=== PATIENT | female | born 1960 | race Caucasian/White ===

== ENCOUNTER → 2021-03-13 10:21 | Outpatient (CLI) | payer OTHER, SELFPAY ==
[2021-03-13 12:24] LABS: Absolute Lymphocyte Count 1.91 X10^3/uL (0.83-4.51); Absolute Neutrophil Count 4.2 X10^3/uL (2.0-7.7); Basophil# 0.05 X10^3/uL; Basophil% 0.7 % (0-1); Eosinophil# 0.04 X10^3/uL; Eosinophils% 0.6 % (0-5); Hematocrit 46.7 % (37-47); Hemoglobin 15.2 g/dL (12.0-15.0); Lymphocyte # 1.91 X10^3/ul (0.83-4.51); Mean Corp Hgb Conc 32.5 g/dL (32-36); Mean Corpuscular Hgb 30.3 pg (27.0-32.0); Monocyte# 0.63 X10^3/uL; Monocyte% 9.3 % (0-10); NRBC Flagged by Analyzer 0 % (0-5); Neutrophil # 4.15 X10^3/uL (2.7-7.7); Platelet Count 321 K/mm3 (150-450); RBC Distribution Width CV 12.1 % (11.6-14.6); RBC Distribution Width SD 41.7 fl (35.1-43.9); Red Blood Count 5.02 M/mm3 (4.2-5.4); White Blood Count 6.8 K/mm3 (4.4-11.0)
[2021-03-13 12:49] LABS: ALB/GLOB Ratio 1.1 RATIO (0.9-2.4); AST(SGOT) 11 U/L (15-37); Alanine Aminotransfer ALT/SGPT 19 U/L (13-56); Alkaline Phosphatase 91 U/L (45-117); Anion Gap 6 (5-15); BUN 8 mg/dL (7-18); BUN/Creat Ratio 11.6 RATIO (10-20); Calcium,Total 9.4 mg/dL (8.5-10.1); Chloride 102 mmol/L (98-107); Creatinine, Serum 0.69 mg/dL (0.55-1.02); EST Glomerular Filtration Rate 92 mL/min (>60); Est Glom Filt Rate - Afr Amer 111 mL/min (>60); Globulin 3.8 g/dL (2.2-4.2); Glucose 88 mg/dL (74-106); Potassium 3.7 mmol/L (3.5-5.1); Protein, Total 7.8 g/dL (6.4-8.2); Sodium Level 137 mmol/L (136-145); Thyroid Stim Hormone (TSH) 1.96 uIU/mL (0.358-3.74)
[2021-03-13 13:16] LABS: Hepatitis C Antibody Non-Reactive (Nonreactive); Vitamin D,25 Hydroxy 12.4 ng/mL
== END ==
PROVIDERS: Visit Provider Family Medicine Geriatric Medicine
DX: E55.9 Vitamin D deficiency, unspecified (principal); R53.83 Other fatigue; Z13.89 Encounter for screening for other disorder
CPT/HCPCS: 36415; 80053; 82306; 84443; 85025; 86803

== ENCOUNTER → 2021-03-27 07:35 | Outpatient (CLI) | payer OTHER, SELFPAY ==
--- NOTE | 2021-03-27 07:54 | BI_ITS ---
MAMMOGRAPHY - BILATERAL SCREENING 3-D TOMOSYNTHESIS REASON FOR EXAM: Female, 60 years old. Routine screening PERTINENT HISTORY: Grandmother with breast cancer.. TECHNIQUE: 2-D mammograms and 3-D Tomosynthesis of the breast (s) were performed. CAD was performed. COMPARISON: 2013 FINDINGS: The breast composition is heterogeneously dense that can obscure small breast masses. Scattered benign calcifications are seen. No dense spiculated masses or suspicious microcalcifications are identified. No architectural distortion is identified. There is no skin thickening or retraction. There has been no significant change since the prior study. BI/SCRN MAMM (CAD)W/TYLOR BILAT IMPRESSION: No mammographic signs of malignancy. Routine yearly mammograms recommended. ASSESSMENT CATEGORY: BIRADS Category 1: Negative. A letter regarding these results will be sent to the patient by the facility within 30 days. FOLLOW UP RECOMMENDATION: Yearly follow up mammogram recommended. (A) Approximately 10% of breast cancers are not detected by mammography. A normal mammogram should not delay biopsy of a clinically suspicious abnormality. Electronically Signed: Ector Carlisle MD at 12:06 EDT , Service support ,
== END ==
PROVIDERS: PCP Family Medicine Geriatric Medicine; Referring Provider Family Medicine Geriatric Medicine; Visit Provider Family Medicine Geriatric Medicine
DX: Z12.31 Encounter for screening mammogram for malignant neoplasm of breast (principal)
CPT/HCPCS: 77063; 77067

== ENCOUNTER → 2021-06-16 09:29 | Outpatient (CLI) | payer OTHER, SELFPAY ==
[2021-06-16 12:25] LABS: Absolute Lymphocyte Count 2.34 X10^3/uL (0.83-4.51); Absolute Neutrophil Count 4.3 X10^3/uL (2.0-7.7); Basophil# 0.03 X10^3/uL; Basophil% 0.4 % (0-1); Eosinophil# 0.07 X10^3/uL; Eosinophils% 0.9 % (0-5); Hematocrit 41.9 % (37-47); Hemoglobin 13.4 g/dL (12.0-15.0); Lymphocyte # 2.34 X10^3/ul (0.83-4.51); Mean Corpuscular Hgb 30.1 pg (27.0-32.0); Mean Corpuscular Volume 94.2 fL (81-99); Mean Platelet Vol. 12.2 fl (6.2-12.0); Monocyte# 0.78 X10^3/uL; Monocyte% 10.3 % (0-10); NRBC Flagged by Analyzer 0 % (0-5); Neutrophil # 4.29 X10^3/uL (2.7-7.7); Platelet Count 315 K/mm3 (150-450); RBC Distribution Width CV 12.8 % (11.6-14.6); RBC Distribution Width SD 44.3 fl (35.1-43.9); Red Blood Count 4.45 M/mm3 (4.2-5.4); White Blood Count 7.5 K/mm3 (4.4-11.0)
[2021-06-16 12:48] LABS: ALB/GLOB Ratio 1.1 RATIO (0.9-2.4); AST(SGOT) 12 U/L (15-37); Alanine Aminotransfer ALT/SGPT 23 U/L (13-56); Albumin, Serum 3.9 g/dL (3.2-5.0); Alkaline Phosphatase 88 U/L (45-117); Anion Gap 7 (5-15); BUN 9 mg/dL (7-18); BUN/Creat Ratio 12.7 RATIO (10-20); Calcium,Total 8.8 mg/dL (8.5-10.1); Chloride 102 mmol/L (98-107); Creatinine, Serum 0.71 mg/dL (0.55-1.02); EST Glomerular Filtration Rate 89 mL/min (>60); Est Glom Filt Rate - Afr Amer 107 mL/min (>60); Globulin 3.6 g/dL (2.2-4.2); Glucose 129 mg/dL (74-106); Potassium 3.6 mmol/L (3.5-5.1); Protein, Total 7.5 g/dL (6.4-8.2); Sodium Level 137 mmol/L (136-145); Thyroid Stim Hormone (TSH) 1.65 uIU/mL (0.358-3.74)
== END ==
PROVIDERS: PCP Family Medicine Geriatric Medicine; Visit Provider Family Medicine Geriatric Medicine
DX: I10 Essential (primary) hypertension (principal)
CPT/HCPCS: 36415; 80053; 84443; 85025

== ENCOUNTER → 2021-07-30 15:14 | Outpatient (CLI) | payer OTHER, SELFPAY ==
[2021-07-30 16:21] LABS: Anion Gap 3 (5-15); BUN 11 mg/dL (7-18); BUN/Creat Ratio 16.1 RATIO (10-20); Chloride 106 mmol/L (98-107); Creatinine, Serum 0.68 mg/dL (0.55-1.02); EST Glomerular Filtration Rate 92 mL/min (>60); Est Glom Filt Rate - Afr Amer 112 mL/min (>60); Glucose 91 mg/dL (74-106); Potassium 3.8 mmol/L (3.5-5.1); Sodium Level 139 mmol/L (136-145)
== END ==
PROVIDERS: PCP Family Medicine Geriatric Medicine; Visit Provider Family Medicine Geriatric Medicine
DX: I10 Essential (primary) hypertension (principal)
CPT/HCPCS: 36415; 80048

== ENCOUNTER → 2021-09-15 10:57 | Outpatient (CLI) | payer OTHER, SELFPAY ==
[2021-09-15 12:37] LABS: Absolute Lymphocyte Count 2.64 X10^3/uL (0.83-4.51); Basophil# 0.04 X10^3/uL; Basophil% 0.5 % (0-1); Eosinophils% 1.2 % (0-5); Hematocrit 40.1 % (37-47); Hemoglobin 13.3 g/dL (12.0-15.0); Lymphocyte # 2.64 X10^3/ul (0.83-4.51); Lymphocyte % 30.9 % (19-41); Mean Corp Hgb Conc 33.2 g/dL (32-36); Mean Corpuscular Hgb 30.8 pg (27.0-32.0); Mean Corpuscular Volume 92.8 fL (81-99); Mean Platelet Vol. 11.6 fl (6.2-12.0); Monocyte# 0.72 X10^3/uL; Monocyte% 8.4 % (0-10); NRBC Flagged by Analyzer 0 % (0-5); Neutrophil # 4.99 X10^3/uL (2.7-7.7); Neutrophil % 58.5 % (47-70); Platelet Count 310 K/mm3 (150-450); RBC Distribution Width CV 12.7 % (11.6-14.6); RBC Distribution Width SD 43.9 fl (35.1-43.9); Red Blood Count 4.32 M/mm3 (4.2-5.4); White Blood Count 8.5 K/mm3 (4.4-11.0)
[2021-09-15 12:51] LABS: Vitamin D,25 Hydroxy 16.5 ng/mL
[2021-09-15 13:04] LABS: AST(SGOT) 14 U/L (15-37); Alanine Aminotransfer ALT/SGPT 21 U/L (13-56); Albumin, Serum 3.9 g/dL (3.2-5.0); Alkaline Phosphatase 95 U/L (45-117); Anion Gap 5 (5-15); BUN 12 mg/dL (7-18); BUN/Creat Ratio 16.6 RATIO (10-20); Calcium,Total 9.2 mg/dL (8.5-10.1); Chloride 106 mmol/L (98-107); Creatinine, Serum 0.72 mg/dL (0.55-1.02); EST Glomerular Filtration Rate 86 mL/min (>60); Est Glom Filt Rate - Afr Amer 104 mL/min (>60); Globulin 3.8 g/dL (2.2-4.2); Glucose 93 mg/dL (74-106); Potassium 3.6 mmol/L (3.5-5.1); Protein, Total 7.7 g/dL (6.4-8.2); Sodium Level 138 mmol/L (136-145); Thyroid Stim Hormone (TSH) 2.18 uIU/mL (0.358-3.74)
== END ==
PROVIDERS: PCP Family Medicine Geriatric Medicine; Visit Provider Family Medicine Geriatric Medicine
DX: I10 Essential (primary) hypertension (principal); E55.9 Vitamin D deficiency, unspecified
CPT/HCPCS: 36415; 80053; 82306; 84443; 85025

== ENCOUNTER → 2022-07-07 | Outpatient (CLI) | payer OTHER, SELFPAY ==
--- NOTE | 2022-07-07 07:02 | BI_ITS ---
MAMMOGRAPHY - BILATERAL SCREENING REASON FOR EXAM: Female, 62 years old. Routine annual screening examination. PERTINENT HISTORY: Grandmother with breast cancer. TECHNIQUE: Digital bilateral breast tylor (3D mammographic acquisition) in the CC and MLO projections. 2-D mediolateral oblique (MLO) and craniocaudad (CC) views of both breasts were obtained. CAD: Full Field Digital Mammography with Computer Added Detection was performed. COMPARISON: Comparison is made with prior study of 03/27/2021 and 06/05/2014. FINDINGS: Breast Composition: The breasts are extremely dense, which lowers the sensitivity of mammography. There is evidence of a focal area of architectural distortion in the upper central portion of the right breast. Correlation with ultrasound is recommended. No other significant abnormalities are identified. BI/SCRN MAMM (CAD)W/TYLOR BILAT IMPRESSION: Focal area of architectural distortion in the upper deep central portion of the right breast as described. Correlation with ultrasound recommended. ASSESSMENT CATEGORY: BIRADS Category 0: Incomplete. Need additional imaging evaluation. A letter regarding these results will be sent to the patient by the facility within 30 days. Approximately 10% of breast cancers are not detected by mammography. A normal mammogram should not delay biopsy of a clinically suspicious abnormality. [id number] Electronically Signed: Carlos Cifuentes MD at 8:35 EDT ,
== END | disposition home or self-care (01) ==
LOC: OPBI 07:01
PROVIDERS: PCP Internal Medicine; Visit Provider Internal Medicine
DX: Z12.31 Encounter for screening mammogram for malignant neoplasm of breast (principal); Z98.890 Other specified postprocedural states
CPT/HCPCS: 77063; 77067

== ENCOUNTER → 2022-07-08 | Outpatient (CLI) | payer OTHER, SELFPAY ==
--- NOTE | 2022-07-08 14:52 | US_ITS ---
STUDY: ULTRASOUND BREAST - RIGHT REASON FOR EXAM: Female, 62 years old. Abnormal screening mammogram. TECHNIQUE: Axial and longitudinal images of the RIGHT breast were performed with a high resolution ultrasound transducer. # OF IMAGES: 25 COMPARISON: Comparison is made with prior mammogram dated 07/07/2022. FINDINGS: RIGHT Breast: Targeted imaging of the breasts was performed. There is dense fibroglandular tissue. Irregular dense tissue is seen at the 11 o''clock position of the breast. Additional mammographic views will be obtained for further assessment. US/Breast Limited Unilateral IMPRESSION: Irregular soft tissue density at the 11 o''clock position of the breast as described. Additional mammographic views will be obtained. ASSESSMENT CATEGORY: BIRADS Category 0: Incomplete. Need additional imaging evaluation. A letter regarding these results will be sent to the patient by the facility within 30 days. Electronically Signed: Carlos Cifuentes MD at 8:11 EDT ,
--- NOTE | 2022-07-08 15:23 | BI_ITS ---
MAMMOGRAPHY - UNILATERAL DIAGNOSTIC: RIGHT BREAST REASON FOR EXAM: Female, 62 years old. Abnormal screening mammogram. PERTINENT HISTORY: Grandmother with breast cancer. TECHNIQUE: Compression spot views of the right breast in mediolateral oblique and craniocaudad projections were obtained. CAD: Full Field Digital Mammography with Computer Added Detection was performed. COMPARISON: Comparison is made with prior mammogram dated 07/07/2022 and prior sonogram dated 07/08/2022. FINDINGS: Breast Composition: The breasts are extremely dense, which lowers the sensitivity of mammography. Persistent architectural distortion in the deep central slightly medial aspect of the right breast. Biopsy recommended. No other significant abnormalities are identified. BI/DIAG MAMM W/CAD, UNILAT IMPRESSION: Persistent architectural distortion in the deep central slightly medial aspect of the right breast as described. Biopsy is recommended. ASSESSMENT CATEGORY: BIRADS Category 4: Suspicious - Biopsy Should Be Considered. A letter regarding these results will be sent to the patient by the facility within 30 days. Approximately 10% of breast cancers are not detected by mammography. A normal mammogram should not delay biopsy of a clinically suspicious abnormality. Electronically Signed: Carlos Cifuentes MD at 8:09 EDT ,
== END | disposition home or self-care (01) ==
LOC: OPUS 14:49
PROVIDERS: PCP Internal Medicine; Visit Provider Internal Medicine
DX: R92.8 Other abnormal and inconclusive findings on diagnostic imaging of breast (principal)
CPT/HCPCS: 76642; 77065

== ENCOUNTER → 2022-07-15 | Outpatient (CLI) | payer OTHER, SELFPAY ==
--- NOTE | 2022-07-15 14:35 | BRBX_PTH ---
PATIENT: ADDIE DOBBINS LOC: [facility] U#:[id number] AGE/SX: 62/F ROOM: RE07/15/[address]: Dr. Shaila Paredes MD : 1960 BED: DIS: 07/15/2022 SPEC #: [id number] RECD: 07/15/22 14:53 STATUS: MELITON REQ #: [id number] SAMI: 07/15/22 14:[address]: Shaila Paredes DEPT: SURGICAL PATHOLOGY RECD BY: Aubrie Grant ENTERED: 07/16/22 08:07 SP TYPE: BREAST BX OT DR: Dr. Cynthia Birmingham MD Tissues: Right breast, NOS Procedures: Surgery Specimen Level IV HEADER OPERATION: Right breast biopsy PRE-OP DIAGNOSIS: Right breast mass TISSUE SUBMITTED: Right breast tissue 11 o?clock 4 cm ISCHEMIC TIME: <1 minute FIXATION TIME: 53 hours MICROSCOPIC DIAGNOSIS Right breast tissue, 11 o?clock, 4 cm from nipple, core biopsy: Extensive dense fibrosis. Negative for atypia or malignancy. See comment. WALT:lino 07/19/2022 COMMENT Breast glandular and ductal tissue are not identified. Correlation with clinical, radiologic findings and appropriate follow up are necessary. MICROSCOPIC DESCRIPTION Slides are reviewed. GROSS DESCRIPTION Received in fixative is one container labeled with the patient's name and designated right breast. The specimen consists of multiple elongated fragments of short-yellow fibroadipose tissue that in aggregate measure 1.5 x 0.5 x 0.1 cm. The entire specimen is submitted in one cassette. / WALT:lino 07/16/2022 TC:5 CPT: 78852
== END | disposition home or self-care (01) ==
LOC: LABSPEC 15:02
PROVIDERS: PCP Internal Medicine; Visit Provider Surgery
DX: N60.31 Fibrosclerosis of right breast (principal)
CPT/HCPCS: 88305

== ENCOUNTER 2022-08-26 05:45 | Day surgery (SDC) | payer OTHER, SELFPAY ==
--- NOTE | 2022-08-26 06:07 | PCM.HP.STD ---
HPI - General HPI Narrative ADDIE DOBBINS, is a 62 F who presents for right breast excisional biopsy due to discordance between imaging and biopsy. Pathology of right breast biopsy was extensive dense fibrosis. Patient denies any changes since the biopsy denies any pain in the breast. From 07/15/22 office visit: HPI: 62-year-old female presents due to right breast mass on mammography.? Patient underwent screening mammography did get called back for an ultrasound as well as a diagnostic.? Patient ultimately was given a BI-RADS 4 due to some architectural distortion about 11:00 in the right breast, ultrasound is called some irregular tissue in this area as well.? Patient states she previously had a lumpect[place] [address] Yusuf after having a couple biopsies.? Patient states that it was benign but does not remember exactly what the biopsies showed.? Patient thinks she has had a total of 2 biopsies in the right breast currently she does have 1 clip still in the right breast.? Patient's paternal grandmother was diagnosed with breast cancer, age at menses 13, age at time of first child n, 2 previous breast biopsies. [facility] Medical History (Updated 08/19/22 @ 13:21 by Julia Davenport) Abnormal mammogram of right breast Anxiety Breast lump Depression Former smoker History of echocardiogram History of stress test Hives Hypertension Post-menopausal Seasonal allergies Wears glasses Home Medications citalopram 10 mg tablet 10 mg PO DAILY #90 tabs 03/22/22 [Rx Last Taken Unknown] diltiazem HCl 120 mg capsule,extended release 12 hr 120 mg PO Q12H #180 caps 03/22/22 [Rx Last Taken 08/26/22] valsartan 320 mg tablet 320 mg PO DAILY #90 tabs 03/22/22 [Rx Last Taken 08/26/22] cholecalciferol (vitamin D3) 125 mcg (5,000 unit) capsule 125 mcg PO DAILY 06/30/22 [History Last Taken Unknown] Allergy/AdvReac Type Severity Reaction Status Date / Time Penicillins Allergy Severe Hives Verified 08/26/22 06:19 Sulfa (Sulfonamide Allergy Severe vision Verified 08/26/22 06:19 Antibiotics) problem aspirin Allergy Intermediate Hives Verified 08/26/22 06:19 ampicillin Allergy Hives Verified 08/26/22 06:19 latex Allergy Hives Verified 08/26/22 06:19 Family History Father Alcoholism Cancer prostate Kidney disease Melanoma Seizures Sister Alcoholism Hypertension Mother Anxiety Depression Diabetes Myocardial infarction 79 Heart disease Hypertension Hyperlipemia Brother Depression Hypertension Surgical History (Updated 08/19/22 @ 13:21 by Julia Davenport) History of hysterectomy History of lumpectomy Social History Smoking Status: Former smoker alcohol intake: current alcohol intake frequency: a few times a month Alcohol type: beer and wine substance use type: does not use frequency: 5-6 times per week Physical Exam Const alert, oriented x3 and no apparent distress HEENT normocephalic and head/scalp atraumatic Chest Chest Narrative: Right breast: About 10:00 firm area of breast tissue about 3 cm x 3 cm, nontender, no change in overlying skin, no nipple discharge. Resp normal respiratory effort Cardio regular rate GI soft to palpation; Negative for non-distended Extremity no clubbing, cyanosis or edema Neuro CN's II-XII intact bilaterally Psych mental status grossly normal Assessment & Plan Assessment/Plan (1) Breast lump: PLAN: Plan Plan for excisional biopsy of right breast mass with ultrasound localization. Discussed procedure including risk of possibly needing further surgery, bleeding, infection, cosmesis. Patient no further concerns at this time is agreeable to proceed. Shaila Paredes M.D. Pager: [phone] [facility] [address] [place] [address], [address] [place] [address] Office: [phone]
[2022-08-26 06:20] VITALS: BP 148/68; PULSE 64; RESP 16; TEMP 36.9; O2SAT 100
[2022-08-26] MEDS: Lactated Ringers 1,000 ML 15 ML IV (06:26)
[2022-08-26] MEDS: Clindamycin 900 MG/50 ML BAG 75 MG IV (07:29)
--- NOTE | 2022-08-26 07:30 | BRBX_PTH ---
PATIENT: ADDIE DOBBINS LOC: [facility] [place] U#:[id number] AGE/SX: 62/F ROOM: RE08/26/[address]: Dr. Shaila Paredes MD : 1960 BED: DIS: 08/26/2022 SPEC #: [id number] RECD: 08/26/22 08:11 STATUS: MELITON [place] #: [id number] SAMI: 08/26/22 07:[address]: Shaila Paredes DEPT: SURGICAL PATHOLOGY RECD BY: Aubrie Grant ENTERED: 08/26/22 08:53 SP TYPE: BREAST BX OTHR DR: Dr. Cynthia Birmingham MD Tissues: A - Right breast, NOS B - Right breast, NOS Procedures: Surgery Specimen Level V HEADER OPERATION: Ultrasound wire loc excisional breast biopsy PRE-OP DIAGNOSIS: Breast lump TISSUE SUBMITTED: A - Right breast lump, long suture - medial, short suture - superior, B - Additional tissue, long suture - new lateral margin, short suture - superior MICROSCOPIC DIAGNOSIS A. Right breast, lumpectomy: Densely collagenized stroma. No evidence of malignancy. B. Additional tissue right breast, lumpectomy: Densely collagenized stroma. No evidence of malignancy. AM:lino 08/30/2022 COMMENT Reference is made to the patient's previous right breast tissue, biopsy ([id number]) in which extensive dense fibrosis was identified. MICROSCOPIC DESCRIPTION Slides are reviewed. GROSS DESCRIPTION A - Received in fixative is one container labeled with the patient's name and designated right breast lump. The specimen consists of a fragment of short-yellow fibrofatty tissue containing a wire. The specimen measures 4 x 3.5 x 2 cm and weighs 16.4 gm. The specimen is inked as follows: anterior - yellow, posterior - black, superior - blue, inferior - green, medial - red and lateral - orange. The specimen is sectioned and totally submitted in ten cassettes after additional fixation. B - Received in fixative is one container labeled with the patient's name and designated additional tissue. The specimen consists of a fragment of short-yellow fibrofatty tissue weighing 5.6 gm and measuring 3.8 x 2.3 x 1.5 cm. The specimen is inked as follows: anterior - yellow, posterior - black, superior - blue, inferior - green, medial - red and lateral - orange. The specimen is serially sectioned and totally submitted in four cassettes after additional fixation. / AM:lino 08/26/2022 TC:5 CPT: 47781 x2
--- NOTE | 2022-08-26 08:08 | BI_ITS ---
SURGICAL BREAST SPECIMEN RADIOGRAPH CLINICAL: Document presence of tissue clip marker in biopsy specimen. FINDINGS: Specimen shows presence of tissue clip marker. Pathology is pending and an addendum to the biopsy report will be performed after the final pathologic diagnosis is rendered. Electronically Signed: Ector Carlisle MD at 8:41 EDT , BI/Breast Biopsy Specimen IMPRESSION: undefined
[2022-08-26] MEDS: Bupivacaine 0.25% 30 ML Vial (08:20)
--- NOTE | 2022-08-26 08:21 | OP.PCM_ITS ---
Report of Operation Date of Procedure: 08/26/22 Pre-Operative Diagnosis: Right breast mass Post-Operative Diagnosis: Same Surgery/Procedure Performed:: Ultrasound localization right breast lumpectomy, good representation was excised but not the entirety as she would have very li ttle breast that she left. X-ray did confirm clip and wire. Description of Surgical Findings:: Patient has very dense breast tissue centrally and laterally. Surgeon: Shaila Paredes senior energy market coordinator: Felicity Cooper Type of Anesthesia: General/Supplemental Anesthesiologist: ySlvain Briscoe Special Medications: Clindamycin 900 mg IV x1 Specimen's removed: Right lumpectomy, additional lateral margin Estimated Blood Loss (mL): < 10 cc Description of Procedure: Patient was brought to the operating placed plan operating table. A timeout was completed verifying correct patient, procedure, site, positioning, special equipment prior to procedure. Patient's right breast was prepped and draped in usual sterile fashion. The breast mass was localized using a Kopan's needle and ultrasound to identify the clip/mass. Curvilinear incision was made with a 15 blade scalpel overlying the mass. This was dissected down to the mass and surrounding the mass att empting to get gross normal tissue. However patient had large amount of very dense breast tissue laterally did take good representation including the previous biopsy clip of the right breast mass. This was oriented and sent for mammography for x-ray then to pathology. X-ray did confirm the clip. An additional lateral margin was also taken and oriented. Did not remove all of the dense breast tissue laterally as it would take most of patient's breast tissue. Wound was irrigated with sterile water. Hemostasis was achieved with electrocautery. Incision was closed with 3-0 interrupted subdermal sutures and a running 4-0 Monocryl for the skin with Steri-Strips and OpSite. Gauze fluffs and surgical bra was also placed. Patient was extubated. Patient tolerated procedure well was taken to the postanesthesia care unit in stable condition. Complications none
--- NOTE | 2022-08-26 08:27 | EX.PCM.DISCH ---
Discharge Instructions Diet Discharge Diet: No restrictions Activity Discharge Activity: May Not Drive (for 2-3 days or while taking narcotic pain meds.) May shower in (days): 1 Lifting Restrictions: 10 pounds for 1 week. Dressing / Incision Call your doctor if your incision/area has: Continuous Slow Oozing, Sudden Increased Bleeding, Increased Pain/ Swelling and Increased Redness Call your doctor if you observe: Fever of 101 or Higher Suture Line Care: Avoid Pulling/Pushing and Avoid Pinching/Bending Remove Dressing in: 1 day Additional Dressing/Incision Instructions:: Remove bulky dressing tomorrow. May leave any op-site dressing for 3-4 days. Okay to remove Steri-Strips from the breast incision in 7 to 10 days with annual follow-up. Follow Up Care Please Follow Up With: Shaila Paredes MD When: Please call [phone] for an appointment to be seen in 2 week. Test Results: Test results from this visit will be discussed in further detail at your follow-up appointment, if applicable. Discharge Plan Admission Attending Provider: Shaila Paredes Primary Care Provider: Cynthia Birmingham Discharge Orders/Prescriptions Prescriptions: New tramadol 50 mg tablet 50 mg PO Q6H PRN (Reason: pain) 3 Days Qty: 5 0RF Continued cholecalciferol (vitamin D3) 125 mcg (5,000 unit) capsule 125 mcg PO DAILY citalopram 10 mg tablet 10 mg PO DAILY Qty: 90 3RF diltiazem HCl 120 mg capsule,extended release 12 hr 120 mg PO Q12H Qty: 180 3RF valsartan 320 mg tablet 320 mg PO DAILY Qty: 90 3RF Referrals / Follow Up: Cynthia Birmingham MD [Primary Care Provider] - Disposition Disposition (needs filled in before D/C Order can be placed): Home, Self Care
[2022-08-26 08:32] VITALS: BP 148/68; BP 94/49; PULSE 62; RESP 14; TEMP 36.7; O2SAT 96
[2022-08-26 08:45] VITALS: BP 148/68; BP 97/52; PULSE 59; RESP 14; O2SAT 95
[2022-08-26 09:00] VITALS: BP 102/53; BP 148/68; PULSE 56; RESP 14; O2SAT 97
[2022-08-26 09:10] VITALS: BP 102/49; BP 148/68; PULSE 59; RESP 16; TEMP 37.2; O2SAT 97
[2022-08-26 09:54] VITALS: BP 105/53; BP 148/68; PULSE 71; RESP 16; TEMP 36.9; O2SAT 96
== END 2022-08-26 10:00 | disposition home or self-care (01) ==
LOC: SDC 05:46 → AC 05:48
PROVIDERS: PCP Internal Medicine; Referring Provider Surgery; Visit Provider Surgery
PROC: (CPT 19301; principal; 2022-08-26 07:15)
DX: N63.10 Unspecified lump in the right breast, unspecified quadrant (principal); Z87.891 Personal history of nicotine dependence; I10 Essential (primary) hypertension; Z79.899 Other long term (current) drug therapy; F41.9 Anxiety disorder, unspecified; F32.A Depression, unspecified
CPT/HCPCS: 19301; 00400; 76098; 88305; 88307; J7120; J2405

== ENCOUNTER → 2023-06-20 | Outpatient (CLI) | payer MEDICARE, OTHER, SELFPAY ==
[2023-06-20 09:11] LABS: Absolute Lymphocyte Count 1.84 X10^3/uL (0.83-4.51); Absolute Neutrophil Count 4.4 X10^3/uL (2.0-7.7); Basophil# 0.05 X10^3/uL; Basophil% 0.7 % (0-1); Eosinophil# 0.12 X10^3/uL; Eosinophils% 1.7 % (0-5); Hematocrit 39.8 % (37-47); Lymphocyte # 1.84 X10^3/ul (0.83-4.51); Lymphocyte % 26.2 % (19-41); Mean Corp Hgb Conc 32.7 g/dL (32-36); Mean Corpuscular Hgb 31.4 pg (27.0-32.0); Mean Corpuscular Volume 96.1 fL (81-99); Mean Platelet Vol. 11.1 fl (6.2-12.0); Monocyte% 8.6 % (0-10); NRBC Flagged by Analyzer 0 % (0-5); Neutrophil # 4.36 X10^3/uL (2.7-7.7); Neutrophil % 62.2 % (47-70); Platelet Count 259 K/mm3 (150-450); RBC Distribution Width CV 12.1 % (11.6-14.6); RBC Distribution Width SD 42.5 fl (35.1-43.9); Red Blood Count 4.14 M/mm3 (4.2-5.4)
[2023-06-20 09:39] LABS: Vitamin D,25 Hydroxy 99.4 ng/mL
[2023-06-20 09:53] LABS: AST(SGOT) 14 U/L (15-37); Alanine Aminotransfer ALT/SGPT 15 U/L (13-56); Albumin, Serum 3.7 g/dL (3.2-5.0); Alkaline Phosphatase 100 U/L (45-117); Anion Gap 6 (5-15); BUN 12 mg/dL (7-18); BUN/Creat Ratio 16.9 RATIO (10-20); Calcium,Total 9.2 mg/dL (8.5-10.1); Chloride 105 mmol/L (98-107); Cholesterol 194 mg/dL (200); Creatinine, Serum 0.71 mg/dL (0.55-1.02); EST Glomerular Filtration Rate 88 mL/min (>60); Est Glom Filt Rate - Afr Amer 106 mL/min (>60); Globulin 3.7 g/dL (2.2-4.2); Glucose 86 mg/dL (74-106); High Density Lipoprotein 66 mg/dL; Magnesium 2.3 mg/dL (1.6-2.6); Potassium 3.8 mmol/L (3.5-5.1); Protein, Total 7.4 g/dL (6.4-8.2); Sodium Level 140 mmol/L (136-145); Thyroid Stim Hormone (TSH) 2.96 uIU/mL (0.358-3.74); Triglycerides 96 mg/dL; Very Low Density Lipoprotein 19 mg/dL (5-40)
== END | disposition home or self-care (01) ==
LOC: LAB 08:30
PROVIDERS: PCP Internal Medicine; Referring Provider Internal Medicine; Visit Provider Internal Medicine
DX: E55.9 Vitamin D deficiency, unspecified (principal); I10 Essential (primary) hypertension; F32.A Depression, unspecified; F41.9 Anxiety disorder, unspecified
CPT/HCPCS: 36415; 80053; 80061; 82306; 83735; 84443; 85025

== ENCOUNTER → 2023-07-12 | Outpatient (CLI) | payer MEDICARE, OTHER, SELFPAY ==
--- NOTE | 2023-07-12 13:34 | BI_ITS ---
MAMMOGRAPHY - BILATERAL SCREENING REASON FOR EXAM: Female, 63 years old. Routine annual screening examination. PERTINENT HISTORY: Personal history of breast cancer. Prior right lumpectomy. Grandmother with breast cancer. TECHNIQUE: Digital bilateral breast tylor (3D mammographic acquisition) in the CC and MLO projections. 2-D mediolateral oblique (MLO) and craniocaudad (CC) views of both breasts were obtained. CAD: Full Field Digital Mammography with Computer Added Detection was performed. COMPARISON: Comparison is made with prior mammogram dated July 07, 2022 and July 08, 2022. FINDINGS: Breast Composition: The breasts are extremely dense, which lowers the sensitivity of mammography. There are no dominant masses or suspicious calcifications. A tissue clip marker is seen in the anterior upper slightly lateral aspect of the right breast. Architectural distortion is seen at the biopsy site. No other significant abnormalities are identified. There has been no significant change since the prior study. BI/SCRN MAMM (CAD)W/TYLOR BILAT IMPRESSION: Stable bilateral screening mammogram. Yearly follow-up mammogram recommended. (A) ASSESSMENT CATEGORY: BIRADS Category 2: Benign. A letter regarding these results will be sent to the patient by the facility within 30 days. Approximately 10% of breast cancers are not detected by mammography. A normal mammogram should not delay biopsy of a clinically suspicious abnormality. [id number] Electronically Signed: Carlos Cifuentes MD at 14:48 EDT ,
== END | disposition home or self-care (01) ==
LOC: OPBI 13:33
PROVIDERS: PCP Internal Medicine; Referring Provider Internal Medicine; Visit Provider Internal Medicine
DX: Z12.31 Encounter for screening mammogram for malignant neoplasm of breast (principal); Z85.3 Personal history of malignant neoplasm of breast; Z80.3 Family history of malignant neoplasm of breast
CPT/HCPCS: 77063; 77067

== ENCOUNTER → 2023-12-29 | Outpatient (CLI) | payer MEDICARE, OTHER, SELFPAY ==
--- OUTSIDE RECORDS SUMMARY | 2023-12-29 08:40 | XMS RPT_ITS | CCD ---
Author Name Unknown Address [address] [place] [id number] Organization [facility] Results Test Name Value Interpretation Reference Range Facil ity Summary Purpose Family History No Family History Records Found Advance Directives No Advanced Directives Records Found Additional Source Comments INFORMATION SOURCE (unrecogn ized section and content) FOR RECORDS PERTAINING TO PATIENTS WHO ARE OR HAVE BEEN ENROLLED IN A CHEMICAL DEPENDENCY/SUBSTANCEABUSE PROGRAM, SOME INFORMATION MAY BE OMITTED. This clinical summary was aggregated from multiple sources. Caution should be exercised in using it in the provision of clinical care. This summary normalizes information from multiple sources, and as a consequence, information in this document may materially change the coding, format and clinical context of patient data. In addition, data may be omitted in some cases. CLINICAL DECISIONS SHOULD BE BASED ON THE PRIMARY CLINICAL RECORDS. [facility]. provides no warranty or guarantee of the accuracy or completeness of information in this document.
[2023-12-29 09:51] LABS: Absolute Lymphocyte Count 1.89 X10^3/uL (0.83-4.51); Absolute Neutrophil Count 4.4 X10^3/uL (2.0-7.7); Basophil# 0.05 X10^3/uL; Basophil% 0.7 % (0-1); Eosinophil# 0.15 X10^3/uL; Eosinophils% 2.1 % (0-5); Hemoglobin 13.8 g/dL (12.0-15.0); Lymphocyte # 1.89 X10^3/ul (0.83-4.51); Lymphocyte % 25.9 % (19-41); Mean Corp Hgb Conc 32.9 g/dL (32-36); Mean Corpuscular Hgb 31.9 pg (27.0-32.0); Mean Platelet Vol. 11.4 fl (6.2-12.0); Monocyte# 0.76 X10^3/uL; Monocyte% 10.4 % (0-10); NRBC Flagged by Analyzer 0 % (0-5); Neutrophil # 4.39 X10^3/uL (2.7-7.7); Neutrophil % 60.1 % (47-70); Platelet Count 323 K/mm3 (150-450); RBC Distribution Width CV 12.3 % (11.6-14.6); RBC Distribution Width SD 44.2 fl (35.1-43.9); Red Blood Count 4.33 M/mm3 (4.2-5.4); White Blood Count 7.3 K/mm3 (4.4-11.0)
[2023-12-29 10:18] LABS: Vitamin D,25 Hydroxy 74.2 ng/mL
[2023-12-29 10:26] LABS: ALB/GLOB Ratio 1.1 RATIO (0.9-2.4); AST(SGOT) 14 U/L (15-37); Alanine Aminotransfer ALT/SGPT 15 U/L (13-56); Albumin, Serum 3.8 g/dL (3.2-5.0); Alkaline Phosphatase 86 U/L (45-117); Anion Gap 2 (5-15); BUN 10 mg/dL (7-18); BUN/Creat Ratio 14.7 RATIO (10-20); Calcium,Total 9.1 mg/dL (8.5-10.1); Chloride 109 mmol/L (98-107); Cholesterol 216 mg/dL (200); Creatinine, Serum 0.68 mg/dL (0.55-1.02); EST Glomerular Filtration Rate 92 mL/min (>60); Est Glom Filt Rate - Afr Amer 111 mL/min (>60); Globulin 3.6 g/dL (2.2-4.2); Glucose 79 mg/dL (74-106); High Density Lipoprotein 70 mg/dL; Potassium 3.8 mmol/L (3.5-5.1); Protein, Total 7.4 g/dL (6.4-8.2); Sodium Level 140 mmol/L (136-145); T4 Free Direct 0.85 ng/dL (0.76-1.46); Thyroid Stim Hormone (TSH) 2.69 uIU/mL (0.358-3.74); Triglycerides 54 mg/dL; Very Low Density Lipoprotein 11 mg/dL (5-40)
[2024-01-03 08:11] LABS: QNTFERON TB Mitogen Value > 10.00 IU/mL (.); QNTFERON TB Nil Value 0.01 IU/mL (.); QNTFERON TB1+ Ag Value 0.01 IU/mL (.); QNTFERON TB2+ Ag Value 0.01 IU/mL (.); QNTIFERON TB Positive Criteria Negative (Negative)
== END | disposition home or self-care (01) ==
LOC: LAB 08:15
PROVIDERS: PCP Internal Medicine; Referring Provider Internal Medicine; Visit Provider Internal Medicine
DX: I10 Essential (primary) hypertension (principal); E55.9 Vitamin D deficiency, unspecified; Z11.1 Encounter for screening for respiratory tuberculosis; J30.2 Other seasonal allergic rhinitis; Z13.220 Encounter for screening for lipoid disorders
CPT/HCPCS: 36415; 80053; 80061; 82306; 84439; 84443; 84481; 85025; 86480

== ENCOUNTER → 2024-07-18 | Outpatient (CLI) | payer MEDICARE, OTHER, SELFPAY ==
--- NOTE | 2024-07-18 13:18 | BI_ITS ---
MAMMOGRAPHY - BILATERAL SCREENING REASON FOR EXAM: Female, 64 years old. Routine annual screening examination. PERTINENT HISTORY: Grandmother with breast cancer. Prior right excisional and stereotactic breast biopsies. TECHNIQUE: Digital bilateral breast tylor (3D mammographic acquisition) in the CC and MLO projections. 2-D mediolateral oblique (MLO) and craniocaudad (CC) views of both breasts were obtained. CAD: Full Field Digital Mammography with Computer Added Detection was performed. COMPARISON: Comparison is made with prior study dated July 12, 2023 and July 08, 2022. FINDINGS: Breast Composition: The breasts are extremely dense, which lowers the sensitivity of mammography. There are no dominant masses or suspicious calcifications. Once again, architectural distortion is seen upper lateral central portion of the right breast in keeping with prior excisional breast biopsy. A tissue clip marker is once again seen in the anterior upper slightly lateral aspect of the right breast. No other significant abnormalities are identified. There has been no significant change since the prior study. BI/SCRN MAMM (CAD)W/TYLOR BILAT IMPRESSION: Stable bilateral screening mammogram. Yearly follow-up mammogram recommended. (A) ASSESSMENT CATEGORY: BIRADS Category 2: Benign. A letter regarding these results will be sent to the patient by the facility within 30 days. Approximately 10% of breast cancers are not detected by mammography. A normal mammogram should not delay biopsy of a clinically suspicious abnormality. [id number] Electronically Signed: Carlos Cifuentes MD at 14:22 EDT ,
== END | disposition home or self-care (01) ==
LOC: OPBI 13:18
PROVIDERS: PCP Internal Medicine; Referring Provider Internal Medicine; Visit Provider Internal Medicine
DX: Z12.31 Encounter for screening mammogram for malignant neoplasm of breast (principal); Z80.3 Family history of malignant neoplasm of breast
CPT/HCPCS: 77063; 77067

== ENCOUNTER → 2025-07-31 | Outpatient (CLI) | payer MEDICARE, OTHER, SELFPAY ==
--- NOTE | 2025-07-31 14:45 | BI_ITS ---
EXAM: SCRN MAMM (CAD)W/TYLOR BILAT DATE: 07/31/2025 CLINICAL HISTORY: F, Age 65 y/o , BREAST CANCER SCREENING Grandmother with breast cancer. Prior right excisional and stereotactic breast biopsies. TECHNIQUE: Procedure Code: [id number] Modality: MG Procedure: SCRN MAMM (CAD)W/TYLOR BILAT COMPARISON: Prior exam(s) dated July 18, 2024.. FINDINGS: TISSUE DENSITY: The breasts are extremely dense, which lowers the sensitivity of mammography. Bilateral Breast Mammographic Findings: Once again, there is evidence of architectural distortion in the upper lateral central portion of the right breast in keeping with prior excisional breast biopsy. A tissue clip marker is once again seen in the anterior upper slightly lateral aspect of the right breast. There is a 3.8 cm by 3.2 cm nodular density in the deep upper lateral aspect of the right breast. Correlation with ultrasound recommended. BI/SCRN MAMM (CAD)W/TYLOR BILAT IMPRESSION: 3.8 cm 3.2 cm nodule in the upper lateral aspect of the right breast. Sonograp hic correlation recommended. OVERALL FINAL ASSESSMENT BI-RADS 0: INCOMPLETE - NEED ADDITIONAL IMAGING EVALUATION. RECOMMENDATION: Ultrasound Recommended Additional Recommendation none A letter with findings and recommendations will be mailed to the patient. Reading Location: [id number]
== END | disposition home or self-care (01) ==
LOC: OPBI 14:21
PROVIDERS: PCP Internal Medicine; Referring Provider Internal Medicine; Visit Provider Internal Medicine
DX: Z12.31 Encounter for screening mammogram for malignant neoplasm of breast (principal); Z80.3 Family history of malignant neoplasm of breast; N63.10 Unspecified lump in the right breast, unspecified quadrant
CPT/HCPCS: 77063; 77067

== ENCOUNTER 2025-08-07 13:18 | Outpatient (CLI) | payer MEDICARE, OTHER, SELFPAY ==
--- NOTE | 2025-08-07 13:20 | US_ITS ---
PROCEDURE: BREAST LIMITED UNILATERAL 08/07/2025 REASON FOR EXAM: F, Age 65 y/o , NODULE Abnormal mammogram, COMPARISON: Mammogram from 07/31/2025. TECHNIQUE: Procedure Code: USBRSTLIMIT Modality: US Procedure: BREAST LIMITED UNILATERAL FINDINGS: At the area of concern in the right breast, upper-outer quadrant, there is architectural distortion from previous lumpectomy. There is no suspicious shadowing solid lesion, or shadowing calcifications. There is a hyperechoic dense band of fibrous tissue in the right breast which may correspond to the abnormality noted on ultrasound. US/Breast Limited Unilateral IMPRESSION: No suspicious sonographic findings, postsurgical changes due to lumpectomy jorge alberto g with dense fibrous tissue. BI-RADS 2: BENIGN RECOMMENDATION: Routine annual follow-up in 1 Year Reading Location: [id number]
== END 2025-08-07 23:59 | disposition home or self-care (01) ==
LOC: OPUS 13:18
PROVIDERS: PCP Internal Medicine; Referring Provider Internal Medicine; Visit Provider Internal Medicine
DX: N63.10 Unspecified lump in the right breast, unspecified quadrant (principal); R92.8 Other abnormal and inconclusive findings on diagnostic imaging of breast
CPT/HCPCS: 76642

== ENCOUNTER → 2025-10-07 | Outpatient (CLI) | payer MEDICARE, OTHER, SELFPAY ==
--- OUTSIDE RECORDS SUMMARY | 2025-10-07 08:22 | XMS RPT_ITS | CCD ---
Author Organization [facility] Care Team Providers Care Cost Control Specialist Name Role Phone Dr. Jomar Awad Chi Primary Care Provider [phone] Dr. Cynthia Birmingham Attending Provider Dr. Cynthia Birmingham Primary Care Provider Dr. Cynthia Birmingham Referring Provider Dr. Shaila Paredes Attending Provider Dr. Shaila Paredes Referring Provider Dr. Shaila Paredes Other Provider Dr. Cynthia Birmingham Primary Care Provider Dr. Cynthia Birmingham Attending Provider [phone] Cynthia Birmingham MD Primary Care Provider [phone] Dr. Cynthia Birmingham MD Attending Provider Cynthia Birminhgam Attending Unavailable Cynthia Birmingham Primary Care Unavailable Cynthia Birmingham Referring Unavailable Cynthia Birmingham Attending Unavailable Cynthia Birmingham Primary Care Unavailable Cynthia Birmingham Referring Unavailable Cynthia Birmingham Attending Unavailable Cynthia Birmingham Primary Care Unavailable Cynthia Birmingham Attending Unavailable Cynthia Birmingham Primary Care Unavailable Allergies Allergy Classification Reported Allergen(s) Allergy Type Date of Onset Reaction(s) Facility (7 sources) Ampicillin Drug Allergy 2 [facility] (7 sources) Aspirin Drug Allergy 2 [facility] (7 sources) Latex Allergy to substance 2 [facility] (7 sources) Penicillins Allergy to substance 2 [facility] (7 sources) Sulfonamides (Antibiotic) Allergy to substance 2 vision problem [facility] (1 source) dilTIAZem Drug Allergy 5 Rash [facility] Comment on above: diltiazem Hydrochlor pool (1 source) Ampicillin Drug Allergy 5 [facility] Repository (1 source) Aspirin Drug Allergy 5 [facility] (1 source) dilTIAZem Drug Allergy 5 [facility] (1 source) Latex Drug allergy (disorder) 5 [facility] (1 source) Penicillins Drug allergy (disorder) 5 [facility] (1 source) Sulfonamides (Antibiotic) Drug allergy (disorder) 5 [facility] Repository Medications Current Medications Medication Drug Class(es) Dates Sig (Normalized) Sig (Original) cholecalciferol 0.125 mg oral capsule (7 sources) Vitamin D Start: 06-30-2022 take 1 capsule by mouth once daily Cholecalciferol (Vitamin D3) 125 mcg (5,000 unit) capsule Active 125 ug PO DAILY June 30, 2022 12:00am citalopram 10 mg oral tablet (19 sources) Serotonin Reuptake Inhibitor Start: 12-17-2021 End: 03-13-2025 take 1 tablet by mouth once daily Citalopram 10 mg tablet Active 10 mg PO DAILY March 13, 2025 12:22pm 24 hr dilTIAZem hydrochloride 240 mg extended release oral capsule (20 sources) Calcium Channel Ainsley Start: 12-28-2023 End: 12-24-2024 take 1 capsule by mouth once daily Diltiazem Hcl 240 mg capsule,extended release 24hr Active 240 mg PO DAILY December 24, 2024 12:30pm Start: 06-23-2023 End: 07-26-2023 take 1 capsule by mouth once daily Diltiazem Hcl 240 mg capsule,extended release 24hr Discontinued 240 mg PO DAILY June 23, 2023 12:00am July 26, 2023 2:04pm Start: 12-17-2021 End: 07-26-2023 take 1 capsule by mouth every twelve hours Diltiazem Hcl 120 mg capsule,extended release 12 hr Discontinued 120 mg PO Q12H 180 March 23, 2023 8:00am July 26, 2023 1:56pm On Hold: None toothpaste (3 sources) Start: 06-30-2022 toothpaste Act alyssa PO June 30, 2022 12:00am toothpaste has b12 and d3 in it and uses 2x day triamcinolone acetonide 1 mg/ml topical cream (2 sources) Corticosteroid Start: 10-24-2024 Triamcinolone Acetonide 0.1 % cream Active 1 NMA TOPICAL TWICE A DAY October 24, 2024 1:00am Apply to affected area twice daily x 10 days. Start: 08-22-2023 End: 12-28-2023 inject 40 mg by intramuscular injection once Triamcinolone Acetonide 40 mg/mL suspension Discontinued 40 mg IM ONCE August 22, 2023 12:00am December 28, 2023 3:03pm valsartan 320 mg oral tablet (19 sources) Angiotensin 2 Receptor Ainsley Start: 12-17-2021 End: 03-13-2025 take 1 tablet by mouth once daily Valsartan 320 mg tablet Active 320 mg PO DAILY March 13, 2025 12:22pm Completed/Discontinued Medications Medication Drug Class(es) Dates Sig (Normalized) Sig (Original) betamethasone 0.5 mg/ml / clotrimazole 10 mg/ml topical cream (1 source) Azole Antifungal, Corticosteroid Start: 08-17-20 End: 08-22-20 Clotrimazole-Betametha sone 1-0.05 % cream Discontinued 1 NMA TOPICAL TWICE A DAY 45 August 17, 2023 12:00am August 22, 2023 2:24pm doxycycline hyclate 100 mg oral tablet (1 source) Tetracycline-clas s Drug Start: 08-17-20 End: 08-22-20 take 1 tablet by mouth twice daily Doxycycline Hyclate 100 mg tablet Discontinued 100 mg PO TWICE A DAY August 17, 2023 12:00am August 22, 2023 2:24pm fluconazole 100 mg oral tablet (1 source) Azole Antifungal Start: 08-17-20 End: 08-22-20 take 1 tablet by mouth once daily Fluconazole 100 mg tablet Discontinued 100 mg PO DAILY August 17, 2023 12:00am August 22, 2023 2:24pm hydroCHLOROthiazide 25 mg oral tablet (7 sources) Thiazide Diuretic Start: 06-14-20 End: 12-17-19 Hydrochlorothiazide 25 MG tablet Discontinued 12.5 mg PO DAILY June 14, 2014 12:00am December 17, 2021 10:12am Start: 06-14-2014 End: 12-17-2021 take 12.5 mg by mouth once daily Hydrochlorothiazide Discontinued 12.5 MG PO DAILY June 14, 2014 12:00am December 17, 2021 10:12am predniSONE 10 mg oral tablet (1 source) Start: 07-26-2023 End: 08-17-2023 take 4 tablets by mouth once daily, then take 3 tablets by mouth once daily, then take 2 tablets by mouth once daily, then take 1 tablet by mouth once daily Prednisone 10 mg tablet Discontinued 10 mg PO As Directed July 26, 2023 12:00am August 17, 2023 3:47pm 4 tablets daily x3 days, then 3 tablets daily x3 days, then 2 tabs daily x3 days, then 1 tablet daily x3 days traMADol hydrochloride 50 mg oral tablet (4 sources) Opioid Agonist Start: 08-26-2022 End: 12-23-2022 take 1 tablet by mouth every six hours as needed for pain Tramadol 50 mg tablet Discontinued 50 mg PO EVERY 6 HOURS as needed for pain 5 August 26, 2022 12:00am December 23, 2022 2:05pm Triamcinolone Acetonide (Kenalog) 40 mg/mL suspension (1 source) Start: 08-22-2023 End: 12-28-2023 inject 40 mg by intramuscular injection once Triamcinolone Acetonide (Kenalog) 40 mg/mL suspension Discontinued 40 mg IM ONCE August 22, 2023 12:00am December 28, 2023 3:02pm vitamin b12 0.25 mg oral tablet (1 source) Vitamin B12 Start: 06-27-2024 End: 10-24-2024 take 1 tablet by mouth every other day Cyanocobalamin (Vitamin B-12) 250 mcg tablet Discontinued 250 ug PO every other day June 27, 2024 12:00am October 24, 2024 2:53pm Problems Active Problems Problem Classification Problem Date Documented Date Episodic/Chronic Allergic reactions (8 sources) Urticaria; Translations: [Urticaria, unspecified] 12-17-2021 Episodic Anxiety disorders (12 sources) Anxiety; Translations: [Anxiety disorder, unspecified] Chronic Disorders of lipid metabolism (1 source) Hyperlipidemia, unspecified; Translations: [Hyperlipidemia, unspecified] Onset: 2025 Chronic Essential hypertension (14 sources) Hypertensive disorder; Translations: [Essential (primary) hypertension] Onset: 2025 Chronic Mood disorders (12 sources) Depressive disorder; Translations: [Depression] Chronic Mood disorders (1 source) Mood disorders; Translations: [Depression, unspecified] Onset: 2025 Nonmalignant breast conditions (16 sources) Breast lump; Translations: [Unspecified lump in unspecified breast] Onset: 08-31-2025 Episodic Nutritional deficiencies (5 sources) Vitamin D deficiency; Translations: [Vitamin D deficiency, unspecified] Onset: 2025 12-23-2022 Chronic Other screening for suspected conditions (not mental disorders or infectious disease) (8 sources) Patient encounter status; Translations: [Encounter for other screening for malignant neoplasm of breast] Onset: 08-30-2025 06-30-2022 Episodic Other skin disorders (1 source) Eruption; Translations: [Rash and other nonspecific skin eruption] 08-17-2023 Episodic Other upper respiratory disease (7 sources) Seasonal allergy; Translations: [Other seasonal allergic rhinitis] 12-17-2021 Chronic Other upper respiratory disease (2 sources) Other seasonal allergic rhinitis; Translations: [Allergic rhinitis, cause unspecified] Onset: 2025 06-23-2023 Chronic Residual codes; unclassified (2 sources) History of right mastectomy; Translations: [Other specified postprocedural states] 09-10-2022 Episodic Residual codes; unclassified (2 sources) Other specified postprocedural states; Translations: [Status post right breast lumpectomy] 09-10-2022 Episodic Comment on above: Initially BI-RADS 4 excisional biopsy showed dense collagenous stroma RIGHT Past or Other Problems Problem Classification Problem Date Documented Da te Episodic/Chronic Immunizations and screening for infectious disease (3 sources) Needs influenza immunization; Translations: [Encounter for immunization] Onset: 2025 08-17-2023 Episodic Results Test Name Value Interpretation Reference Range Facility Breast Limited Unilateralon 08-07-2025 Breast Limited Unilateral [facility] Imaging Services [address] [place] [address] Breast Limited Unilateral MR#: [id number] Acct: [id number] Name: MARU DOBBINS Rep #: [id number] : 1960 F 65 From: Ector Carlisle MD PCP: Dr. Cynthia Birmingham MD Status: REG CLI Study: Breast Limited Unilateral Date of Exam: Exam# [id number] Ordering Dr: Cynthia Birmingham MD PROCEDURE: BREAST LIMITED UNILATERAL 08/07/2025 REASON FOR EXAM: F, Age 65 y/o , NODULE Abnormal mammogram, COMPARISON: Mammogram from 07/31/2025. TECHNIQUE: Procedure Code: USBRSTLIMIT Modality: US Procedure: BREAST LIMITED UNILATERAL FINDINGS: At the area of concern in the right breast, upper-outer quadrant, there is architectural distortion from previous lumpectomy. There is no suspicious shadowing solid lesion, or shadowing calcifications. There is a hyperechoic dense band of fibrous tissue in the right breast which may correspond to the abnormality noted on ultrasound. US/Breast Limited Unilateral IMPRESSION: No suspicious sonographic findings, postsurgical changes due to lumpectomy along with dense fibrous tissue. BI-RADS 2: BENIGN RECOMMENDATION: Routine annual follow-up in 1 Year Reading Location: [facility] CC: Dr. Cynthia Birmingham MD Technical Healthcare Consultant: Signed Normal [facility] SCRN MAMM (CAD)W/TYLOR BILATo n 07-31-2025 SCRN MAMM (CAD)W/TYLOR BILAT [facility] Imaging Services [address] [place] [address] SCRN MAMM (CAD)W/TYLOR BILAT MR#: [id number] Acct: [id number] Name: MARU DOBBINS Rep #: [id number] : 1960 F 65 From: Carlos hernandes MD PCP: Dr. Cynthia Birmingham MD Status: REG CLI Study: SCRN MAMM (CAD)W/TYLOR BILAT Date of Exam: 07/09 03/01 Exam# [id number] Ordering Dr: Cynthia Birmingham MD EXAM: SCRN MAMM (CAD)W/TYLOR BILAT DATE: 07/31/2025 CLINICAL HISTORY: F, Age 65 y/o , BREAST CANCER SCREENING Grandmother with breast cancer. Prior right excisional and stereotactic breast biopsies. TECHNIQUE: Procedure Code: BISMWCADBTOM Modality: MG Procedure: SCRN MAMM (CAD)W/TYLOR BILAT COMPARISON: Prior exam(s) dated July 18, 2024.. FINDINGS: TISSUE DENSITY: The breasts are extremely dense, which lowers the sensitivity of mammography. Bilateral Breast Mammographic Findings: Once again, there is evidence of architectural distortion in the upper lateral central portion of the right breast in keeping with prior excisional breast biopsy. A tissue clip marker is once again seen in the anterior upper slightly lateral aspect of the right breast. There is a 3.8 cm by 3.2 cm nodular density in the deep upper lateral aspect of the right breast. Correlation with ultrasound recommended. BI/SCRN MAMM (CAD)W/TYLOR BILAT IMPRESSION: 3.8 cm 3.2 cm nodule in the upper lateral aspect of the right breast. Sonographic correlation recommended. OVERALL FINAL ASSESSMENT BI-RADS 0: INCOMPLETE - NEED ADDITIONAL IMAGING EVALUATION. RECOMMENDATION: Ultrasound Recommended Additional Recommendation none A letter with findings and recommendations will be mailed to the patient. Reading Location: [id number] CC: Dr. Cynthia Birmingham MD Technical Healthcare Consultant: Signed Normal [facility] MR/BMS.JENNABon 2025 MR/BMS.B [facility] [address] [place] [address] OFFICE VISIT Date of Service: 04/24/25 MR#: [id number] Acct: [id number] Name: MARU DOBBINS Rep #: [id number] : 1960 Provider: Dr. Cynthia madsen MD Age/Sex: 65/F Location: BMS.IMB Status: Signed Intake Vital Signs 10/24/24 13:56 04/24/25 13:57 Height 5 ft 1 in 5 ft 1 in Weight: 124 lb 121 lb 8 oz BMI 23.4 22.9 BP 161/75 H 154/73 H Blood Pressure Location Rt brachial Lt brachial Position Sitting Sitting Respiration 16 16 Pulse 67 74 Pulse Source Monitor Monitor Temp 98.0 F 98.6 F Temp Source Temporal Temporal Pulse Oximetry (%) 98 95 Oxygen Delivery Method room air room air Intake Visit Reasons: 6 M FU Chief Complaint: 6 M FU Iron Pourer Required: No Accompanied by: Self Is patient in pain?: No Allergies Penicillins Allergy (Severe, Verified 04/24/25 13:50) Hives Sulfa (Sulfonamide Antibiotics) Allergy (Severe, Verified 04/24/25 13:50) vision problem aspirin Allergy (Intermediate, Verified 04/24/25 13:50) Hives diltiazem Allergy (Mild, Verified 04/24/25 13:50) Rash ampicillin Allergy (Verified 04/24/25 13:50) Hives latex Allergy (Verified 04/24/25 13:50) Hives Medications ???Medication ???Instructions ???Recorded ???Confirmed ???Type cholecalciferol (vitamin D3) 125 125 mcg PO DAILY 06/30/22 04/24/25 History mcg (5,000 unit) capsule triamcinolone acetonide 0.1 % 1 applic topical BID #30 grams 04/24/25 Rx topical cream diltiazem HCl 240 mg capsule,24 240 mg PO DAILY #90 caps 12/24/24 04/24/25 Rx hr,extended release citalopram 10 mg tablet 10 mg PO DAILY #90 tabs 03/13/25 0 04/24/25 Rx valsartan 320 mg tablet 320 mg PO DAILY #90 tabs 03/13/25 04/24/25 Rx Have you fallen in the past year?: No PFSH Medical History Contact dermatitis due to poison yasmine Wears glasses Post-menopausal Former smoker History of echocardiogram History of stress test Abnormal mammogram of right breast Depression Anxiety Hives Hypertension Breast lump Seasonal allergies Surgical History History of lumpectomy History of hysterectomy Family History Father Alcoholism Cancer prostate Kidney disease Melanoma Seizures Sister Alcoholism Hypertension Mother Anxiety Depression Diabetes Myocardial infarction 79 Heart disease Hypertension Hyperlipemia Brother Depression Hypertension Social History Smoking Status: Former smoker alcohol intake: current alcohol intake frequency: a few times a month Alcohol type: beer and wine substance use type: does not use frequency: 5-6 times per week HPI HPI Chief Complaint: 6 M FU Details: MARU DOBBINS, is a 65 F who presents to the office today for 6-month follow-up. 65-year-old female with a history of hypertension on diltiazem to 40 mg daily as well as valsartan 320 mg daily. She has been stable on this regimen for some time. He takes vitamin D supplement as well as low-dose of citalopram for depressive symptoms. Once again has been stable on that regimen. She does not have any new significant concerns or issues right now. Her blood pressures are typically mildly elevated during her visits. A lot of stresses recently as she does continue to take care of her who had a severe stroke and is largely noncommunicative. She is able to understand certain phrases, and motions etc. and communicate that way. She does have assistance of hospice care and has had respite breaks at times which she really appreciates. She has been taking care of him the last several years now at home and has really done remarkably well. She had a lot of stresses, with some issues with water entering the basement from the well. That took some sorting out but ultimately was solved but again does contribute to the stresses that she does have to navigate through a lot of those types of home issues but again has done remarkably well. Review of systems per chart. Denies any chest pain, chest tightness, shortness of breath wheeze cough or congestion. No fever or chills. No nausea or vomiting. Appetite has been good. Bowel movements have been regular. Has been trying to do some additional exercise with extra steps at home. She really cannot get away for any length of time to do anything other than that but she does maintain good level of physical activity doing all of the household as well as outdoor activities that need completed such as all of the lawnmowing. Needs mammogram updated. Physical exam. Vital signs on chart. PERRLA. Sclera are clear. TMs are (more content not included)... Normal [facility] MR/BMS.IMMohsen 10-24-2024 MR/BMS.IMB [facility] [address] [place] [address] OFFICE VISIT Date of Service: 10/24/24 MR#: [id number] Acct: [id number] Name: MARU DOBBINS Rep #: [id number] : 1960 Provider: Dr. Cynthia madsen MD Age/Sex: 64/F Location: [facility] Status: Signed Intake Vital Signs 06/27/24 14:01 10/24/24 13:56 Height 5 ft 1 in 5 ft 1 in Weight: 121 lb 124 lb BMI 22.8 23.4 BP 160/66 H 161/75 H Blood Pressure Location Lt brachial Rt brachial Position Sitting Sitting Respiration 16 16 Pulse 67 67 Pulse Source Monitor Monitor Temp 98.4 F 98.0 F Temp Source Temporal Temporal Pulse Oximetry (%) 97 98 Oxygen Delivery Method room air room air Intake Visit Reasons: 4 M FU Chief Complaint: 4 m fu Iron Pourer Required: No Accompanied by: Self Is patient in pain?: No Allergies Penicillins Allergy (Severe, Verified 10/24/24 13:49) Hives Sulfa (Sulfonamide Antibiotics) Allergy (Severe, Verified 10/24/24 13:49) vision problem aspirin Allergy (Intermediate, Verified 10/24/24 13:49) Hives diltiazem Allergy (Mild, Verified 10/24/24 13:49) Rash ampicillin Allergy (Verified 10/24/24 13:49) Hives latex Allergy (Verified 10/24/24 13:49) Hives Medications ???Medication ???Instructions ???Recorded ???Confirmed ???Type cholecalciferol (vitamin D3) 125 125 mcg PO DAILY 06/30/22 10/24/24 History mcg (5,000 unit) capsule diltiazem HCl 240 mg capsule,24 240 mg PO DAILY #90 caps 12/28/23 10/24/24 Rx hr,extended release citalopram 10 mg tablet 10 mg PO DAILY #90 tabs 03/26/24 10/24/24 Rx valsartan 320 mg tablet 320 mg PO DAILY #90 tabs 03/26/24 10/24/24 Rx triamcinolone acetonide 0.1 % 1 applic topical BID #30 grams 10/24/24 10/24/24 Rx topical cream Have you fallen in the past year?: No PFSH Medical History Contact dermatitis due to poison yasmine Wears glasses Post-menopausal Former smoker History of echocardiogram History of stress test Abnormal mammogram of right breast Depression Anxiety Hives Hypertension Breast lump Seasonal allergies Surgical History History of lumpectomy History of hysterectomy Family History Father Alcoholism Cancer prostate Kidney disease Melanoma Seizures Sister Alcoholism Hypertension Mother Anxiety Depression Diabetes Myocardial infarction 79 Heart disease Hypertension Hyperlipemia Brother Depression Hypertension Social History Smoking Status: Former smoker alcohol intake: current alcohol intake frequency: a few times a month Alcohol type: beer and wine substance use type: does not use frequency: 5-6 times per week HPI HPI Chief Complaint: 4 m fu Details: MARU DOBBINS, is a 64 F who presents to the office today for 6-month follow-up. Patient has a history of hypertension, on diltiazem and valsartan as per the chart. She is also on citalopram and vitamin D. Generally speaking has been doing pretty well. 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 He was initially in the senior living but ultimately to home. She has been able to manage well, given the circumstances. She does have hospice care and that has been a great help for her. He gives her some time away so that she can get errands and things done. She has done intermittent respite care as well and again that has helped out as her mother has some health concerns. In fact relatively recently, her mother fell, broke her hip. She is now in assisted living situation. Patient herself has been doing again pretty well, given the circumstances. She maintains a largely plant-based diet. She has also developed once again a rash on her left hand, similar to what we had about a year or so ago. She ultimately responded to Kenalog injection at that point. Tried several topical things that did not seem to help. She describes it as itching, redness, sometimes a little tender. Using some Benadryl cream. She is going to try topical Benadryl as well as the topical triamcinolone and see if we can get this to clear. I kind of question whether this is related in someway to her stress levels as that seems to correlate with the outbreak of this. Review of systems per chart. Physical exam. Vital signs on chart. PERRLA. Sclera are clear. TMs are unremarkable with normal light reflexes. Canals are unremarkable. Posterior pharynx is unremarkable. Good dentition. No cervical or supraclavicular lymph nodes enlarged or tender. No clear thyromegaly. No thyroid nodules readily palpable. Lungs are without wheeze, rhonchi, rales. No E/A changes are hea (more content not included)... Normal [facility] Absolute lymphocyte countOrd ered By: Cynthia Birmingham on 06-20-2023 Lymphocytes Auto (Unsp spec) [#/Vol] 1.84 10*3/uL 0.83-4.51 [facility] Basophil percentageOrdered B y: Cynthia Floreschner on 06-20-2023 Basophils/100 WBC (Bld) 0.7 % 0-1 [facility] Bilirubin [Mass/Vol] 0.50 mg/dL 0.20-1.00 [facility] Comment on above: For patients on eltr ombopag therapy, use of Dimension Royal TBIL is not recommended. Chloride [Moles/Vol] 105 mmol/L 98-107 [facility] Cholesterol [Mass/Vol] 194 mg/dL <200 [facility] Comment on above: <200 mg/dL Desirable 200-240 mg/dL Borderline >240 mg/dL High Risk Eosinophils/100 WBC (Bld) 1.7 % 0-5 [facility] Glucose [Mass/Vol] 86 mg/dL 74-106 [facility] Neutrophils (Bld) [#/Vol] 4.4 10*3/uL 2.0-7.7 [facility] Neutrophils/100 WBC (Bld) 62.2 % 47-70 [facility] Potassium [Moles/Vol] 3.8 mmol/L 3.5-5.1 [facility] Protein [Mass/Vol] 7.4 g/dL 6.4-8.2 [facility] Sodium [Moles/Vol] 140 mmol/L 136-145 [facility] Triglyceride [Mass/Vol] 96 mg/dL <199 [facility] Comment on above: The drugs N-Acetylcy steine and Metamizole may falsely depress this assay.Serum Triglycerides Reference Interval Normal <150 mg/dL Borderline high 150 - 199 mg/dL High 200 - 499 mg/dL Very High > or = 500 mg/dL WBC (Bld) [#/Vol] 7.0 10*3/uL 4.4-11.0 [facility] Blood erythrocytes count (nu mber/volume)Ordered By: Cynthia Birmingham on 06-20-2023 RBC (Bld) [#/Vol] 4.14 10*6/uL 4.2-5.4 [facility] Blood hemoglobin measurement (mass/volume)Ordered By: Cynthia Birmingham on 06-20-2023 Hemoglobin (Bld) [Mass/Vol] 13.0 g/dL 12.0-15.0 [facility] Blood lymphocytes/100 leukoc ytesOrdered By: Cynthia Birmingham on 06-20-2023 Lymphocytes/100 WBC (Bld) 26.2 % 19-41 [facility] Blood monocytes/100 leukocyt esOrdered By: Cynthia Birmingham on 06-20-2023 Monocytes/100 WBC (Bld) 8.6 % 0-10 [facility] Blood platelet mean volumeOr dered By: Cynthia Birmingham on 06-20-2023 Platelet mean volume (Bld) [Entitic vol] 11.1 fL 6.2-12.0 [facility] Determination of erythrocyte mean corpuscular volume (MCV)Ordered By: Cynthia Birmingham on 06-20-2023 MCV (RBC) [Entitic vol] 96.1 fL 81-99 [facility] Hematocrit Auto (Bld) [Volum e fraction]Ordered By: Cynthia Birmingham on 06-20-2023 Hematocrit (Bld) [Volume fraction] 39.8 % 37-47 [facility] Laboratory - Chemistry and C hemistry - challengeOrdered By: Cynthia Birmingham on 06-20-2023 ALP [Catalytic activity/Vol] 100 U/L 45-117 [facility] ALT [Catalytic activity/Vol] 15 U/L 13-56 [facility] CO2 [Moles/Vol] 29.0 mmol/L 21.0-32.0 [facility] Globulin (S) [Mass/Vol] 3.7 g/dL 2.2-4.2 [facility] Magnesium [Mass/Vol] 2.3 mg/dL 1.6-2.6 [facility] Urea nitrogen/Creatinine [Mass ratio] 16.9 mg/mg 10-20 [facility] Laboratory - Hematology and Cell countsOrdered By: Cynthia Birmingham on 06-20-2023 Erythrocyte distribution width (RBC) [Entitic vol] 42.5 fL 35.1-43.9 [facility] Erythrocyte distribution width (RBC) [Ratio] 12.1 % 11.6-14.6 [facility] Immature granulocytes/100 WBC (Bld) 0.600 % 0.0-0.9 [facility] Comment on above: IG% - Immature Granu locytes (promyelocytes, myelocytes and metamyelocytes) > 1% indicates that a LEFT SHIFT is Present. MCH (RBC) [Entitic mass] 31.4 pg 27.0-32.0 [facility] Nucleated RBC/100 WBC (Bld) [Ratio] 0 % 0-5 [facility] MCHC Auto (RBC) [Mass/Vol]Or dered By: Cynthia Birmingham on 06-20-2023 MCHC (RBC) [Mass/Vol] 32.7 g/dL 32-36 [facility] No Panel InformationOrdered By: Cynthia Birmingham on 06-20-2023 Estimated GFR (MDRD) Amer 106 mL/min >60 [facility] Comment on above: GFR Calc Estimated GFR (MDRD) Non-Af Amer 88 mL/min >60 [facility] Comment on above: Non- GFR Calc Thyroid Stimulating Hormone (TSH) 2.96 uIU/mL 0.358-3.74 [facility] Vitamin D 25-Hydroxy 99.4 ng/mL [facility] Comment on above: Vitamin D 25(OH) Sta tus Range Deficiency <20 ng/mL (50nmol/L) Insufficiency 20 - 30 ng/mL (50 - 75 nmol/L) Sufficiency 30 - 100 ng/mL (75 - 250 nmol/L) Toxicity >100 ng/mL (>250 nmol/L) Platelets bldOrdered By: Olga Birmingham on 06-20-2023 Platelets (Bld) [#/Vol] 259 10*3/uL 150-450 [facility] Serum or plasma albumin rufino urement (mass/volume)Ordered By: Cynthia Birmingham on 06-20-2023 Albumin [Mass/Vol] 3.7 g/dL 3.2-5.0 [facility] Serum or plasma albumin/glob ulin mass ratioOrdered By: Cynthia Birmingham on 06-20-2023 Albumin/Globulin [Mass ratio] 1.0 {ratio} 0.9-2.4 [facility] Serum or plasma calcium rufino urement (mass/volume)Ordered By: Cynthia Birmingham on 06-20-2023 Calcium [Mass/Vol] 9.2 mg/dL 8.5-10.1 [facility] Serum or plasma cholesterol in HDL measurement (mass/volume)Ordered By: Cynthia Birmingham on 06-20-2023 Cholesterol in HDL [Mass/Vol] 66 mg/dL >40 [facility] Comment on above: The drugs N-Acetylcy steine and Metamizole may falsely depress this assay. Reference Range HDL <40 mg/dL Low HDL Cholesterol HDL >or= 60 mg/dL High HDL Cholesterol Serum or plasma cholesterol in VLDL measurement (mass/volume)Ordered By: Cynthia Birmingham on 06-20-2023 Cholesterol in VLDL [Mass/Vol] 19 mg/dL 5-40 [facility] Serum or plasma creatinine m easurement (mass/volume)Ordered By: Cynthia Birmingham on 06-20-2023 Creatinine [Mass/Vol] 0.71 mg/dL 0.55-1.02 [facility] Comment on above: The validity of the calculated GFR & GFRAA in patients over 70 years has not been determined. Clinical correlation is essential. Serum or plasma low density lipoprotein (LDL) cholesterol measurement (mass/volume)Ordered By: Cynthia Birmingham on 06-20-2023 Cholesterol in LDL [Mass/Vol] 109 mg/dL 0-130 [facility] Serum or plasma urea nitroge n measurement (mass/volume)Ordered By: Cynthia Birmingham on 06-20-2023 Urea nitrogen [Mass/Vol] 12 mg/dL 7-18 [facility] Thin prep Papanicolaou smear with manual screeningOrdered By: Cynthia Birmingham on 06-20-2023 Thin prep Papanicolaou smear with manual screening 14 U/L 15-37 [facility] Thin prep Papanicolaou smear with manual screening 6 5-15 [facility] PROGRESSon 04-20-2019 Protein mass conc HNO ID: [id number] Author: Malu Mac Service: ? Author Type: Bolt Man Type: Progress Notes Filed: 04/20/2019 10:56 AM Note Text: POPULATION [facility] INFORMATICS PHYSICIAN LIAISON QUICKNOTE Provider Action/FYI: Maru returned my call after receiving certified letter and states she's no longer seeing Dr. Hawkins due to insurance. PCP removed. Patient identified by name and . Malu Mac CMA [facility] PROGRESSon 04-13-2019 Protein mass conc HNO ID: [id number] Author: Malu Mac Service: ? Author Type: Bolt Man Type: Progress Notes Filed: 04/13/2019 12:29 PM Note Text: POPULATION [facility] INFORMATICS PHYSICIAN LIAISON QUICKNOTE Provider Action/FYI: Certified letter mailed to patient. Patient identified by name and . 3rd attempt - Left message for patient to return call #[phone] Mailing certified letter (not seen in several years) Malu Mac CMA [facility] PROGRESSon 04-11-2019 Protein mass conc HNO ID: [id number] Author: Malu Mac Service: ? Author Type: Bolt Man Type: Progress Notes Filed: 04/13/2019 12:29 PM Note Text: POPULATION HEALTH INFORMATICS PHYSICIAN LIAISON QUICKNOTE Provider Action/FYI: Patient identified by name and . 2nd attempt - Left message for patient to return call #[phone] Malu Mac CMA [facility] CNPTOUTREACHon 04-10-2019 CNPTOUTREACH Patient Outreach (INTMWS) MARU DOBBINS ([id number]) 1960 F Date Time Provider Department 04/10/19 MALU MAC ([facility]) INTMWS During your visit today, we recorded the following information about you: Malu Mac CMA 04/13/2019 12:29 PM Signed [facility] CARE GAP REGISTRY DOCUMENTATION (OUTSIDE TEAMLET) Provider Action/FYI: PSR Action/FYI: Due for Physical (last appointment with PCP 06/23/2015) Send certified letter to patient if unable to contact. Health Maintenance Due: BP CONTROLLED (<130/80) due on 1976 HPV TESTING due on 1979 DTAP,TDAP,TD(1 - Tdap) due on 05/16/2014 COLORECTAL CANCER SCREENING,SEE MODIFIER due on 06/17/2015 ANNUAL PCP TEAM CHRONIC DISEASE VISIT due on 06/23/2016 MAMMOGRAM due on 07/16/2016 - ordered (good until 04/27) DIABETES SCREEN due on 06/17/2018 - ordered (good until 04/27) PAP TESTING due on 05/22/2019 Patient identified by name and date of . Last BP/Labs: Blood Pressure: Last 3 Encounter BP Readings: Date: BP: 06/23/2015 161/74 04/21/2015 150/78[ (from Extended Vitals)[ 12/23/2011 150/74 Lipids: Cholesterol, Total (mg/dL) Date Value 06/17/2015 241 HDL Cholesterol (mg/dL) Date Value 06/17/2015 69 LDL Cholesterol (mg/dL) Date Value 06/17/2015 157 Triglyceride (mg/dL) Date Value 06/17/2015 77 HGB A1C: No results found for: HBA1C TSH: No results found for: TSH) ? Patient has the following care gap registry disease diagnosis:HTN ? Patient has the following open care gaps: Health Maintenance Due: BP CONTROLLED (<130/80) due on 1976 HPV TESTING due on 1979 DTAP,TDAP,TD(1 - Tdap) due on 05/16/2014 COLORECTAL CANCER SCREENING,SEE MODIFIER due on 06/17/2015 ANNUAL PCP TEAM CHRONIC DISEASE VISIT due on 06/23/2016 MAMMOGRAM due on 07/16/2016 - ordered (good until 04/27) DIABETES SCREEN due on 06/17/2018 - ordered (good until 04/27) PAP TESTING due on 05/22/2019 ? Last office visit: 06/23/2015 ? Future office visit:Physical next available with pcp or nonprofit fundraiser YOSEF Manzano CMA 04/13/2019 12:29 PM Signed [facility] ASSISTANT BROOKS Provider Action/FYI: Patient identified by name and . 1st attempt - MyChart message sent. YOSEF Manzano CMA 04/13/2019 12:29 PM Signed [facility] INFORMATICS PHYSICIAN LIAISON BROOKS Provider Action/FYI: Patient identified by name and . 2nd attempt - Left message for patient to return call #[phone] YOSEF Manzano CMA 04/13/2019 12:29 PM Signed [facility] INFORMATICS PHYSICIAN LIAISON BROOKS Provider Action/FYI: Certified letter mailed to patient. Patient identified by name and . 3rd attempt - Left message for patient to return call #[phone] Mailing certified letter (not seen in several years) YOSFE Manzano CMA 04/20/2019 10:56 AM Signed [facility] ASSISTANT BROOKS Provider Action/FYI: Maru returned my call after receiving certified letter and states she's no longer seeing Dr. Hawkins due to insurance. PCP removed. Patient identified by name and . Malu Mac CMA Allergies As of Date: 04/10/2019 Noted Allergy Reaction ASA (SALICYLATES) 12/23/2011 4 - Hives Comments: Hives as a child. No ASA since childhood. LATEX 12/23/2011 2 - Rash PENICILLINS 12/23/2011 2 - Rash Date Reviewed: 06/23/2015 Reviewed by: Sis Quinones LPN - Fully Assessed Reason for Visit: PHMA/Care Gap Outreach [[id number]] Prescriptions as of 04/10/2019 Sig: LOSARTAN 25 MG TABLET Take 2 tablets by mouth once * MULTIVITAMIN WITH MINERALS TA* Take 1 tablet by mouth once d* Problem List As Of Date 04/10/2019 Noted Resolved House dust mite allergy [Z91.09] INVALID FOR* Allergy to mold spores [Z91.09] INVALID FOR* Hypertension [I10] INVALID FOR* More... Letter Text Encounter Status:Closed by MALU MAC CMA on 04/13/19 Normal [facility] PROGRESSon 04-10-2019 Protein mass conc HNO ID: [id number] Author: Malu Mac Service: ? Author Type: Bolt Man Type: Progress Notes Filed: 04/13/2019 12:29 PM Note Text: POPULATION HEALTH INFORMATICS PHYSICIAN LIAISON QUICKNOTE Provider Action/FYI: Patient identified by name and . 1st attempt - Beestart message sent. Malu Mac CMA [facility] Protein mass conc HNO ID: [id number] Author: Malu Mac Service: ? Author Type: Bolt Man Type: Progress Notes Filed: 04/13/2019 12:29 PM Note Text: [facility] CARE GAP REGISTRY DOCUMENTATION (OUTSIDE TEAMLET) Provider Action/FYI: PSR Action/FYI: Due for Physical (last appointment with PCP 06/23/2015) Send certified letter to patient if unable to contact. Health Maintenance Due: BP CONTROLLED (<130/80) due on 1976 HPV TESTING due on 1979 DTAP,TDAP,TD(1 - Tdap) due on 05/16/2014 COLORECTAL CANCER SCREENING,SEE MODIFIER due on 06/17/2015 ANNUAL PCP TEAM CHRONIC DISEASE VISIT due on 06/23/2016 MAMMOGRAM due on 07/16/2016 - ordered (good until 04/27) DIABETES SCREEN due on 06/17/2018 - ordered (good until 04/27) PAP TESTING due on 05/22/2019 Patient identified by name and date of . Last BP/Labs: Blood Pressure: Last 3 Encounter BP Readings: Date: BP: 06/23/2015 161/74 04/21/2015 150/78[ (from Extended Vitals)[ 12/23/2011 150/74 Lipids: Cholesterol, Total (mg/dL) Date Value 06/17/2015 241 HDL Cholesterol (mg/dL) Date Value 06/17/2015 69 LDL Cholesterol (mg/dL) Date Value 06/17/2015 157 Triglyceride (mg/dL) Date Value 06/17/2015 77 HGB A1C: No results found for: HBA1C TSH: No results found for: TSH) ? Patient has the following care gap registry disease diagnosis:HTN ? Patient has the following open care gaps: Health Maintenance Due: BP CONTROLLED (<130/80) due on 1976 HPV TESTING due on 1979 DTAP,TDAP,TD(1 - Tdap) due on 05/16/2014 COLORECTAL CANCER SCREENING,SEE MODIFIER due on 06/17/2015 ANNUAL PCP TEAM CHRONIC DISEASE VISIT due on 06/23/2016 MAMMOGRAM due on 07/16/2016 - ordered (good until 04/27) DIABETES SCREEN due on 06/17/2018 - ordered (good until 04/27) PAP TESTING due on 05/22/2019 ? Last office visit: 06/23/2015 ? Future office visit:Physical next available with pcp or nonprofit fundraiser Malu Mac CMA [facility] PROGRESSon 03-05-2019 Protein mass conc HNO ID: [id number] Author: Malu Mac Service: ? Author Type: Bolt Man Type: Progress Notes Filed: 03/05/2019 1:17 PM Note Text: POPULATION HEALTH INFORMATICS PHYSICIAN LIAISON QUICKNOTE Provider Action/FYI: Letters mailed Patient identified by name and . 3rd attempt - Left message for patient to return call #[phone] Mailing letter to patient. Malu Mac CMA [facility] PROGRESSon 03-02-2019 Protein mass conc HNO ID: [id number] Author: Malu Mac Service: ? Author Type: Bolt Man Type: Progress Notes Filed: 03/05/2019 1:17 PM Note Text: POPULATION HEALTH INFORMATICS PHYSICIAN LIAISON QUICKNOTE Provider Action/FYI: Patient identified by name and . 2nd attempt - Left message for patient to return call #[phone] Malu Mac CMA [facility] CNPTOUTREACHon 03-01-2019 CNPTOUTREACH Patient Outreach (INTMWS) SHILPIMARU ([id number]) 1960 F Date Time Provider Department 03/01/19 MALU MAC ([facility]) INTMWS During your visit today, we recorded the following information about you: Malu Mac CMA 03/05/2019 1:17 PM Signed [facility] CARE GAP REGISTRY DOCUMENTATION (OUTSIDE TEAMLET) Provider Action/FYI: PSR Action/FYI: Due for Physical appointment Health Maintenance Due: BP CONTROLLED (<130/80) due on 1976 HPV TESTING due on 1979 DTAP,TDAP,TD(1 - Tdap) due on 05/16/2014 COLORECTAL CANCER SCREENING,SEE MODIFIER due on 06/17/2015 ANNUAL PCP TEAM CHRONIC DISEASE VISIT due on 06/23/2016 MAMMOGRAM due on 07/16/2016 - ordered (good until 04/2019) DIABETES SCREEN due on 06/17/2018 - ordered (good until 04/2019) PAP TESTING due on 05/22/2019 Patient identified by name and date of . Last BP/Labs: Blood Pressure: Last 3 Encounter BP Readings: Date: BP: 06/23/2015 161/74 04/21/2015 150/78[ (from [facility] Vitals)[ 12/23/2011 150/74 Lipids: Cholesterol, Total (mg/dL) Date Value 06/17/2015 241 HDL Cholesterol (mg/dL) Date Value 06/17/2015 69 LDL Cholesterol (mg/dL) Date Value 06/17/2015 157 Triglyceride (mg/dL) Date Value 06/17/2015 77 HGB A1C: No results found for: HBA1C TSH: No results found for: TSH) ? Patient has the following care gap registry disease diagnosis:HTN ? Patient has the following open care gaps: Health Maintenance Due: BP CONTROLLED (<130/80) due on 1976 HPV TESTING due on 1979 DTAP,TDAP,TD(1 - Tdap) due on 05/16/2014 COLORECTAL CANCER SCREENING,SEE MODIFIER due on 06/17/2015 ANNUAL PCP TEAM CHRONIC DISEASE VISIT due on 06/23/2016 MAMMOGRAM due on 07/16/2016 - ordered (good until 04/2019) DIABETES SCREEN due on 06/17/2018 - ordered (good until 04/2019) PAP TESTING due on 05/22/2019 ? Last office visit: 06/23/2015 ? Future office visit:Physical next available with pcp or nonprofit fundraiser YOSEF Manzano CMA 03/05/2019 1:17 PM Signed [facility] INFORMATICS PHYSICIAN LIAISON GIULIAE Provider Action/FYI: Patient identified by name and . 1st attempt to contact patient - Et3arraf message sent. YOSEF Manzano CMA 03/05/2019 1:17 PM Signed [facility] INFORMATICS PHYSICIAN LIAISON BROOKS Provider Action/FYI: Patient identified by name and . 2nd attempt - Left message for patient to return call #[phone] YOSEF Manzano CMA 03/05/2019 1:17 PM Signed [facility] INFORMATICS PHYSICIAN LIAISON BROOKS Provider Action/FYI: Letters mailed Patient identified by name and . 3rd attempt - Left message for patient to return call #[phone] Mailing letter to patient. Malu Mac CMA Allergies As of Date: 03/01/2019 Noted Allergy Reaction ASA (SALICYLATES) 12/23/2011 4 - Hives Comments: Hives as a child. No ASA since childhood. LATEX 12/23/2011 2 - Rash PENICILLINS 12/23/2011 2 - Rash Date Reviewed: 06/23/2015 Reviewed by: Sis Quinones LPN - Fully Assessed Reason for Visit: PHMA/Care Gap Outreach [[id number]] Prescriptions as of 03/01/2019 Sig: LOSARTAN 25 MG TABLET Take 2 tablets by mouth once * MULTIVITAMIN WITH MINERALS TA* Take 1 tablet by mouth once d* Problem List As Of Date 03/01/2019 Noted Resolved House dust mite allergy [Z91.09] INVALID FOR* Allergy to mold spores [Z91.09] INVALID FOR* Hypertension [I10] INVALID FOR* More... Letter Text Encounter Status:Closed by MALU MAC CMA on 03/05/19 Normal [facility] PROGRESSon 03-01-2019 Protein mass conc HNO ID: [id number] Author: Malu Mac Service: ? Author Type: Bolt Man Type: Progress Notes Filed: 03/05/2019 1:17 PM Note Text: POPULATION HEALTH INFORMATICS PHYSICIAN LIAISON QUICKNOTE Provider Action/FYI: Patient identified by name and . 1st attempt to contact patient - Et3arraf message sent. Malu Mac CMA [facility] Protein mass conc HNO ID: [id number] Author: Malu Mac Service: ? Author Type: Bolt Man Type: Progress Notes Filed: 03/05/2019 1:17 PM Note Text: [facility] CARE GAP REGISTRY DOCUMENTATION (OUTSIDE TEAMLET) Provider Action/FYI: PSR Action/FYI: Due for Physical appointment Health Maintenance Due: BP CONTROLLED (<130/80) due on 1976 HPV TESTING due on 1979 DTAP,TDAP,TD(1 - Tdap) due on 05/16/2014 COLORECTAL CANCER SCREENING,SEE MODIFIER due on 06/17/2015 ANNUAL PCP TEAM CHRONIC DISEASE VISIT due on 06/23/2016 MAMMOGRAM due on 07/16/2016 - ordered (good until 04/2019) DIABETES SCREEN due on 06/17/2018 - ordered (good until 04/2019) PAP TESTING due on 05/22/2019 Patient identified by name and date of . Last BP/Labs: Blood Pressure: Last 3 Encounter BP Readings: Date: BP: 06/23/2015 161/74 04/21/2015 150/78[ (from [facility] Vitals)[ 12/23/2011 150/74 Lipids: Cholesterol, Total (mg/dL) Date Value 06/17/2015 241 HDL Cholesterol (mg/dL) Date Value 06/17/2015 69 LDL Cholesterol (mg/dL) Date Value 06/17/2015 157 Triglyceride (mg/dL) Date Value 06/17/2015 77 HGB A1C: No results found for: HBA1C TSH: No results found for: TSH) ? Patient has the following care gap registry disease diagnosis:HTN ? Patient has the following open care gaps: Health Maintenance Due: BP CONTROLLED (<130/80) due on 1976 HPV TESTING due on 1979 DTAP,TDAP,TD(1 - Tdap) due on 05/16/2014 COLORECTAL CANCER SCREENING,SEE MODIFIER due on 06/17/2015 ANNUAL PCP TEAM CHRONIC DISEASE VISIT due on 06/23/2016 MAMMOGRAM due on 07/16/2016 - ordered (good until 04/2019) DIABETES SCREEN due on 06/17/2018 - ordered (good until 04/2019) PAP TESTING due on 05/22/2019 ? Last office visit: 06/23/2015 ? Future office visit:Physical next available with pcp or nonprofit fundraiser Malu Mac CMA [facility] PROGRESSon 05-01-2018 Protein mass conc HNO ID: [id number] Author: Malu Mac Cma Service: (none) Author Type: (none) Type: Progress Notes Filed: 05/01/2018 10:08 AM Note Text: mychart message read. [facility] CNPTOUTREACHon 04-27-2018 CNPTOUTREACH Patient Outreach (INTMWS) MARU DOBBINS ([id number]) 1960 F Date Time Provider Department 04/27/18 MALU MAC ([facility]) INTMWS During your visit today, we recorded the following information about you: Malu Mac Cma 05/01/2018 10:08 AM Signed [facility] CARE GAP REGISTRY DOCUMENTATION (OUTSIDE TEAMLET) Provider Action/FYI: Please file labs and advise if wanting anything additional. PSR Action/FYI: Patient identified by name and date of . Last BP/Labs: Blood Pressure: Last 3 Encounter BP Readings: Date: BP: 06/23/2015 161/74 04/21/2015 150/78[ (from Extended Vitals)[ 12/23/2011 150/74 Lipids: Cholesterol, Total (mg/dL) Date Value 06/17/2015 241 HDL Cholesterol (mg/dL) Date Value 06/17/2015 69 LDL Cholesterol (mg/dL) Date Value 06/17/2015 157 Triglyceride (mg/dL) Date Value 06/17/2015 77 HGB A1C: No results found for: HBA1C TSH: No results found for: TSH) ? Patient has the following care gap registry disease diagnosis:HTN ? Patient has the following open care gaps:HTN ? Not seen since 06/23/2015 ? Last office visit: 06/23/2015 ? Future office visit:Physical next available with PCP or DRILL DOCTOR Health Maintenance Due: HPV EVERY 5 YEARS due on 1988 ZOSTER VACCINE (SHINGRIX)(1 of 2) due on 2008 DTAP,TDAP,TD(1 - Tdap) due on 05/16/2014 COLORECTAL CANCER SCREENING,SEE MODIFIER due on 06/17/2015 MAMMOGRAM due on 07/16/2016 - order pending Malu Mac Cma 05/01/2018 10:08 AM Signed Et3arraf message sent. Roberto Carlos Tsang APRN.CNP 05/01/2018 10:08 AM Signed Orders filed. LEONORA Giron Cma 05/01/2018 10:08 AM Signed [employer] message read. Allergies As of Date: 04/27/2018 Noted Allergy Reaction ASA (SALICYLATES) 12/23/2011 4 - Hives Comments: Hives as a child. No ASA since childhood. LATEX 12/23/2011 2 - Rash PENICILLINS 12/23/2011 2 - Rash Date Reviewed: 06/23/2015 Reviewed by: Sis Quinones LPN - Fully Assessed Reason for Visit: MA/Care Gap Outreach [[id number]] Primary Visit Diagnosis:Screening mammogram, encounter for [Z12.31] Other Visit Diagnosis:Essential hypertension [I10] Order(s):[facility] SCREENING [[id number]] Order #: [id number] FUTURE COMP METABOLIC PANEL [SQCMP] Order #: [id number] FUTURE Prescriptions as of 04/27/2018 Sig: LOSARTAN 25 MG TABLET Take 2 tablets by mouth once * MULTIVITAMIN WITH MINERALS TA* Take 1 tablet by mouth once d* Problem List As Of Date 04/27/2018 Noted Resolved House dust mite allergy [Z91.09] INVALID FOR* Allergy to mold spores [Z91.09] INVALID FOR* Hypertension [I10] INVALID FOR* More... Encounter Status:Closed by MALU MAC CMA on 05/01/18 [facility] 04-27-2018 Protein mass conc HNO ID: [id number] Author: Roberto Carlos (Carly) Sharan Service: (none) Author Type: Nurse Practitioner Type: Progress Notes Filed: 05/01/2018 10:08 AM Note Text: Orders filed. Roberto Carlos Tsang APRN.NETWORK INTERN [facility] Protein mass conc HNO ID: [id number] Author: Maluvalentin Mac [facility] Service: (none) Author Type: (none) Type: Progress Notes Filed: 05/01/2018 10:08 AM Note Text: MyChart message sent. [facility] Protein mass conc HNO ID: [id number] Author: Malu Mac [facility] Service: (none) Author Type: (none) Type: Progress Notes Filed: 05/01/2018 10:08 AM Note Text: [facility] CARE GAP REGISTRY DOCUMENTATION (OUTSIDE TEAMLET) Provider Action/FYI: Please file labs and advise if wanting anything additional. PSR Action/FYI: Patient identified by name and date of . Last BP/Labs: Blood Pressure: Last 3 Encounter BP Readings: Date: BP: 06/23/2015 161/74 04/21/2015 150/78[ (from Extended Vitals)[ 12/23/2011 150/74 Lipids: Cholesterol, Total (mg/dL) Date Value 06/17/2015 241 HDL Cholesterol (mg/dL) Date Value 06/17/2015 69 LDL Cholesterol (mg/dL) Date Value 06/17/2015 157 Triglyceride (mg/dL) Date Value 06/17/2015 77 HGB A1C: No results found for: HBA1C TSH: No results found for: TSH) ? Patient has the following care gap registry disease diagnosis:HTN ? Patient has the following open care gaps:HTN ? Not seen since 06/23/2015 ? Last office visit: 06/23/2015 ? 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 Cynthia Birmingham MD Work Phone: [facility] 2025 13:57-0400 Body mass index (BMI) [Ratio] 22.9 kg/m2 Dr. Cynthia Birmingham MD Work Phone: [facility] 2025 13:57-0400 Body temperature 98.6 [degF] Dr. Cynthia Birmingham MD Work Phone: [facility] 2025 13:57-0400 Body weight 55.[address] Cynthia Birmingham MD Work Phone: [facility] 2025 13:57-0400 Diastolic blood pressure 73 mm[Hg] Dr. Cynthia Birmingham MD Work Phone: [facility] 2025 13:57-0400 Heart rate 74 /min Dr. Cynthia Birmingham MD Work Phone: [facility] 2025 13:57-0400 Respiratory rate 16 /min Dr. Cynthia Birmingham MD Work Phone: [facility] 2025 13:57-0400 SaO2% (BldA) [Mass fraction] 95 % Dr. Cynthia Birmingham MD Work Phone: [facility] 2025 13:57-0400 Systolic blood pressure 154 mm[Hg] Dr. Cynthia Birmingham MD Work Phone: [facility] 06-23-2023 13:03-0400 Body height 154.[address] Cynthia Birmingham Work Phone: [facility] 06-23-2023 13:03-0400 Body mass index (BMI) [Ratio] 21.4 kg/m2 Dr. Cynthia Birmingham Work Phone: [facility] 06-23-2023 13:03-0400 Body temperature 98.4 [degF] Dr. Cynthia Birmingham Work Phone: [facility] 06-23-2023 13:03-0400 Body weight 51.[address] Cynthia Birmingham Work Phone: [facility] 06-23-2023 13:03-0400 Diastolic blood pressure 76 mm[Hg] Dr. Cynthia Birmingham Work Phone: [facility] 06-23-2023 13:03-0400 Heart rate 68 /min Dr. Cynthia Birmingham Work Phone: [facility] 06-23-2023 13:03-0400 Respiratory rate 16 /min Dr. Cynthia Birmingham Work Phone: [facility] 06-23-2023 13:03-0400 SaO2% (BldA) [Mass fraction] 98 % Dr. Cynthia Birmingham Work Phone: [facility] 06-23-2023 13:03-0400 Systolic blood pressure 150 mm[Hg] Dr. Cynthia Birmingham Work Phone: [facility] 08-26-2022 09:54-0400 Body temperature 98.4 [degF] Dr. Jomar Awad Work Phone: [facility] Work Phone: 08-26-2022 09:54-0400 Diastolic blood pressure 53 mm[Hg] Dr. Jomar Awad Work Phone: [facility] Work Phone: 08-26-2022 09:54-0400 Heart rate 71 /min Dr. Jomar Awad Work Phone: [facility] Work Phone: 08-26-2022 09:54-0400 Respiratory rate 16 /min Dr. Jomar Awad Work Phone: [facility] Work Phone: 08-26-2022 09:54-0400 SaO2% (BldA) [Mass fraction] 96 % Dr. Jomar Awad Work Phone: [facility] Work Phone: 08-26-2022 09:54-0400 Systolic blood pressure 105 mm[Hg] Dr. Jomar Awad Work Phone: [facility] Work Phone: 08-26-2022 06:20-0400 Body height 154.[address] Jomar Awad Work Phone: [facility] Work Phone: 08-26-2022 06:20-0400 Body mass index (BMI) [Ratio] 20 kg/m2 Dr. Jomar Awad Work Phone: [facility] Work Phone: 08-26-2022 06:20-0400 Body weight [address] Jomar Awad Work Phone: [facility] Work Phone: 07-15-2022 14:12-0400 Body height 154.[address] Jomar Awad Work Phone: [facility] Work Phone: 07-15-2022 14:12-0400 Body mass index (BMI) [Ratio] 20.5 kg/m2 Dr. Jomar Awad Work Phone: [facility] Work Phone: 07-15-2022 14:12-0400 Body temperature 98 [degF] Dr. Jomar Awad Work Phone: [facility] Work Phone: 07-15-2022 14:12-0400 Body weight 49.[address] Jomar Awad Work Phone: [facility] Work Phone: 07-15-2022 14:12-0400 Diastolic blood pressure 97 mm[Hg] Dr. Jomar Awad Work Phone: [facility] Work Phone: 07-15-2022 14:12-0400 Heart rate 72 /min Dr. Jomar Awad Work Phone: [facility] Work Phone: 07-15-2022 14:12-0400 Respiratory rate 18 /min Dr. Jomar Awad Work Phone: [facility] Work Phone: 07-15-2022 14:12-0400 SaO2% (BldA) [Mass fraction] 100 % Dr. Jomar Awad Work Phone: [facility] Work Phone: 07-15-2022 14:12-0400 Systolic blood pressure 169 mm[Hg] Dr. Jomar Awad Work Phone: [facility] Work Phone: 06-30-2022 13:09-0400 Body height 154.[address] Jomar Awad Work Phone: [facility] Work Phone: 06-30-2022 13:09-0400 Body mass index (BMI) [Ratio] 20.5 kg/m2 Dr. Jomar Awad Work Phone: [facility] Work Phone: 06-30-2022 13:09-0400 Body temperature 98.4 [degF] Dr. Jomar Awad Work Phone: [facility] Work Phone: 06-30-2022 13:09-0400 Body weight 49.[address] Jomar Awad Work Phone: [facility] Work Phone: 06-30-2022 13:09-0400 Diastolic blood pressure 82 mm[Hg] Dr. Jomar Awad Work Phone: [facility] Work Phone: 06-30-2022 13:09-0400 Heart rate 73 /min Dr. Jomar Awad Work Phone: [facility] Work Phone: 06-30-2022 13:09-0400 Respiratory rate 16 /min Dr. Jomar Awad Work Phone: [facility] Work Phone: 06-30-2022 13:09-0400 SaO2% (BldA) [Mass fraction] 98 % Dr. Jomar Awad Work Phone: [facility] Work Phone: 06-30-2022 13:09-0400 Systolic blood pressure 150 mm[Hg] Dr. Jomar Awad Work Phone: [facility] Work Phone: Encounters Encounter Date Encounter Type Care Provider Facility Start: 08-07-2025 End: 08-07-2025 ambulatory [facility] Facility:[facility] Start: 07-31-2025 End: 07-31-2025 ambulatory Cynthia Vinnie Facility:[facility] Start: 2025 End: [address] Cynthia Birmingham MD -[facility] Work Phone: Start: 2025 End: [address] Cynthia Birmingham MD Work Phone: [facility] Work Phone: Start: 10-24-2024 End: 10-24-2024 ambulatory Cynthia Birmingham Facility:[facility] Start: 07-12-2023 End: 07-12-[address] Cynthia Birmingham Work Phone: [facility] Work Phone: Start: 07-12-2023 End: 07-12-[address] Cynthia Birmingham Work Phone: [facility] Work Phone: Start: 06-23-2023 End: 06-23-[address] Cynthia Birmingham Work Phone: [facility] Work Phone: Start: 06-20-2023 End: 06-20-[address] Cynthia Birmingham Work Phone: [facility] Work Phone: Start: 06-20-2023 End: 06-20-[address] Cynthia Birmingham Work Phone: [facility]Labor[facility] Work Phone: Start: 08-26-2022 Non-patient / Non-visit Dr. Roby Awad Work Phone: [facility] Start: 08-26-2022 End: 08-26-2022 Admission to same day surgery center Dr[facility] Jomar Awad [facility] Start: 08-26-2022 End: 08-26-[address] Jomar Awad Work Phone: [facility] Work Phone: Start: 08-17-2022 End: 08-17-[address] Jomar Awad Work Phone: [facility] Start: 07-15-2022 End: 07-15-[address] Jomar Awad Work Phone: [facility] Work Phone: Start: 07-15-2022 End: 07-15-[address] Jomar Awad Work Phone: [facility]Laboratory, Specimen Start: 07-15-2022 End: 07-15-[address] Jomar Awad Work Phone: [facility] Start: 07-08-2022 End: 07-08-[address] Jomar Awad Work Phone: [facility] Work Phone: Start: 07-08-2022 End: 07-08-[address] Jomar Awad Work Phone: [facility] Ultrasound Start: 07-07-2022 End: 07-07-[address] Jomar Awad Work Phone: [facility] Work Phone: Start: 07-07-2022 End: 07-07-[address] Jomar Awad Work Phone: [facility] Start: 06-30-2022 End: 06-30-[address] Jomar Awad Work Phone: [facility] Procedures Date Procedure Procedure Detail Performing Clinician Start: 07-12-[address] Cynthia Birmingham Work Phone: Start: 08-26-[address] Jomar Awad Work Phone: Start: 08-26-2022 Breast, Biopsy, Needle Localization (Right) Dr. Jomar Awad Work Phone: Start: 07-08-[address] Jomar Awad Work Phone: Start: 07-08-[address] Jomar Awad Work Phone: Start: 07-07-[address] Jomar Awad Work Phone: H/O: hysterectomy History of hysterectomy Dr. Jomar Awad Work Phone: History of mastectomy History of lumpecto my Dr. Jomar Awad Work Phone: Plan of Treatment Date Care Activity Detail Author Start: 08-26-2022 Patient discharge [facility] Work Phone: CBC W Auto Different ial panel - Blood [facility] Cobalamin (Vitamin B 12) [Mass/volume] in Serum or Plasma [facility] panel - Serum or Plasma [facility] Lipid 1996 panel - S trey or Plasma [facility] MG Breast - bilateral Screening [facility] Patient referral [facility] Work Phone: Thyroid stimulating hormone measurement [facility] Vitamin D, 25-hydrox y measurement [facility] Immunizations Immunization Date Immunization Notes Care Provider [facility] 08-17-2023 influenza, injectabl e, quadrivalent, preservative free Dr. Cynthia Birmingham MD Work Phone: [facility] 09-15-2021 Covid (Moderna) Dr. Jomar Awad Work Phone: [facility] 08-21-[address] Jomar Awad Work Phone: [facility] 02-26-2021 Covid (Moderna) Dr. Jomar Awad Work Phone: [facility] 01-29-2021 Covid (Moderna) Dr. Jomar Awad Work Phone: [facility] Payers Date Payer Category Payer Medicare [id number] 2024 Self-pay [id number] 2024 Unknown [id number] Unknown [facility] [id number] [facility] [employer] [id number] Unknown [id number] Unknown [id number] Social History Date Type Detail Facility Start: 06-30-2022 End: 06-23-2023 Tobacco smoking status WAIS Unknown if ever smoked [facility] Start: 1960 Sex Assigned At Female W [facility] Start: 12-28-2023 Tobacco smoking stat us NHIS Ex-smoker (finding) [facility] Goals Date Patient Goal Desired Activity /State Mental Status Date Assessment Result Facility 08-26-2022 Cognitive function Voice/Name [facility] Work Phone: Evaluation note Note Date & Type Note Facility Evaluation note Diagnosis Onset Date Anxiety acute Depression acute Hypertension [facility] Work Phone: Evaluation note Note Date & Type Note Facility Evaluation note Diagnosis Onset Date Anxiety acute Depression acute Hypertension chronic Mass of right breast on mammogram acute [facility] Work Phone: Evaluation note Note Date & Type Note Facility Evaluation note Diagnosis Onset Date Anxiety acute Depression acute Hypertension chronic Mass of right breast on mammogram acute Breast lump acute [facility] Work Phone: Evaluation note Note Date & Type Note Facility Evaluation note No assessment information availa ble [facility] Work Phone: Evaluation note Note Date & Type Note Facility Evaluation note Diagnosis Onset Date Anxiety acute Seasonal allergies acute Vitamin D deficiency acute Hypertension [facility] Work Phone: Evaluation note Note Date & Type Note Facility Evaluation note Diagnosis Onset Date Resolution Depression acute April 24 1:46pm Hypertension chronic April 24 025 1:46pm [facility] Work Phone: Reason for referral (narrative) Note Date & Type Note Facility Reason for referral (narrative) No reason for referral information available [employer] [facility] [facility] Work Phone: Summary Purpose Family History No Family History Records Found Relationship Condition Age at Onset Recorded Date/T brent father Alcoholism Unknown Malignant neoplasm Unknown Kidney disorder Unknown Malignant melanoma Unknown Seizure Unknown sister Alcoholism Unknown Hypertension Unknown mother Anxiety Unknown Depression Unknown Diabetes mellitus Unknown Myocardial infarction Unknown Cardiac disease Unknown Hyperlipidemia Unknown brother Depression Unknown Advance Directives No Advanced Directives Records Found Advance Directive Response Recorded Date/ Time Advance Directives Yes June 17, 2014 10:02am Living Will Yes June 17 10:02am Advance Directive Response Recorded Date/ Time Name of Medical Power of Traffic Enumerator SISTER August 19, 2022 1:12pm Advance Directives Yes June 17, 2014 10:02am Living Will Yes August 19 1:12pm Power of Traffic Enumerator Yes August 19, 2022 1:12pm Advance Directive Response Recorded Date/ Time Advance Directives Yes June 17, 2014 10:02am Living Will Yes August 19 1:12pm Power of Traffic Enumerator Yes August 19, 2022 1:12pm Advance Directive Response Recorded Date/ Time Advance Directives Yes August 17, 2023 3:38pm Chief Complaint and Reason for Visit Chief Complaint CHECK UP SCREENING ABD MAMM Reason for Visit Anxiety Depression Hypertension Chief Complaint CHECK UP SCREENING ABD MAMM Birads 4 R Breast R BREAST MASS Reason for Visit Anxiety Depression Hypertension Mass of right breast on mammogram Chief Complaint CHECK UP SCREENING ABD MAMM Birads 4 R Breast R BREAST MASS Flu Shot RT WIRE LOC BREAST BX RT WIRE LOC BREAST BX Reason for Visit Anxiety Depression Hypertension Mass of right breast on mammogram Breast lump Chief Complaint 6 M FU Chief Complaint 6 M FU SCREENING Reason for Visit Anxiety Seasonal allergies Vitamin D deficiency Hypertension Chief Complaint Admit Date 6 M FU 2025 1:46 pm Reason for Visit Admit Date Depression 2025 1:46 pm Hypertension 2025 1:46 pm Additional Source Comments INFORMATION SOURCE (unrecogn ized section and content) DATE CREATED AUTHOR 04/21/2019 [facility] DATE CREATED AUTHOR AUTHOR'S ORGANIZ ATION 09/01/2025 [facility] Goals (unrecognized section and content) Goals may be documented in a n alternate sectionGoals may be documented in an alternate sectionGoals may be documented in an alternate sectionGoals may be documented in an alternate sectionGoals may be documented in an alternate sectionGoals may be documented in an alternate section Care Teams (unrecognized sec tion and content) Team Status: Active Member Role Status Dates Lorraine Crain MD Family Provider Active Dr. Cynthia Birmingham MD Primary Care Provider Active Team Status: Inactive Member Role Status Dates Dr. Cynthia Birmingham MD Primary Care Provider, [facility] Provider Active Team Status: Inactive Member Role Status Dates Dr. Cynthia Birmingham MD Primary Care Pro vider, Attending Provider, Referring Provider Active Team Status: Inactive Member Role Status Dates Dr. Cynthia Birmingham MD Primary Care Provider Active Start: 2025 End: 2025 Dr. Cynthia Birmingham MD Attending Provider Active Start: 2025 End: 2025 FOR RECORDS PERTAINING TO PATIENTS WHO ARE [...] BE BASED ON THE PRIMARY CLINICAL RECORDS. [facility]. provides no warranty or guarantee of the accuracy or completeness of information in this document.
[2025-10-07 08:41] LABS: Hematocrit 40.2 % (37-47); Hemoglobin 12.8 g/dL (12.0-15.0); Immature Granulocytes Count 0.070 X10^3/uL (0.0-0.0); Mean Corp Hgb Conc 31.8 g/dL (32-36); Mean Corpuscular Volume 95.5 fL (81-99); Mean Platelet Vol. 11.2 fl (6.2-12.0); NRBC Flagged by Analyzer 0 % (0-5); Platelet Count 292 K/mm3 (150-450); RBC Distribution Width CV 12.9 % (11.6-14.6); RBC Distribution Width SD 45.3 fl (35.1-43.9); Red Blood Count 4.21 M/mm3 (4.2-5.4); White Blood Count 6.2 K/mm3 (4.4-11.0)
[2025-10-07 09:25] LABS: AST(SGOT) 20 U/L (<=31); Alanine Aminotransfer ALT/SGPT 8 U/L (<=34); Albumin, Serum 4.1 g/dL (3.4-4.8); Alkaline Phosphatase 98 U/L (35-104); Anion Gap 9 (5-15); BUN 12 mg/dL (4-19); BUN/Creat Ratio 18.7 RATIO (10-20); Calcium,Total 9.4 mg/dL (7.6-11.0); Carbon Dioxide 27.3 mmol/L (21.0-32.0); Chloride 104 mmol/L (98-108); Cholesterol 214 mg/dL (<=200); Globulin 2.9 g/dL (2.2-4.2); Glucose 88 mg/dL (70-99); Low Density Lipoprotein Calc. 135 mg/dL; Potassium 4.3 mmol/L (3.3-5.1); Triglycerides 91 mg/dL; Very Low Density Lipoprotein 18 mg/dL (5-40); cholesterol:hdl ratio screen 3.41
[2025-10-07 09:32] LABS: Vitamin B12 < 150 pg/mL (180-914); Vitamin D,25 Hydroxy 86.0 ng/mL (30-100)
== END | disposition home or self-care (01) ==
LOC: LAB 08:01
PROVIDERS: PCP Internal Medicine; Referring Provider Internal Medicine; Visit Provider Internal Medicine
DX: I10 Essential (primary) hypertension (principal); F32.A Depression, unspecified; E78.5 Hyperlipidemia, unspecified; Z13.220 Encounter for screening for lipoid disorders; E55.9 Vitamin D deficiency, unspecified; E53.8 Deficiency of other specified B group vitamins
CPT/HCPCS: 36415; 80053; 80061; 82306; 82607; 84443; 85025